=== PATIENT | female | born 1955 | race Caucasian/White ===

== ENCOUNTER 2019-11-17 07:00 | Emergency (ER) | payer BC, SELFPAY ==
[2019-11-17 07:30] VITALS: BP 148/79; PULSE 66; RESP 16; TEMP 36.7; BMI 61.9
--- NOTE | 2019-11-17 07:34 | ED_ITS ---
HPI - Headache General Chief Complaint: Headache Stated Complaint: palpations in head Time Seen by Provider: 11/17/19 07:34 Source: patient Mode of arrival: ambulatory Limitations: no limitations History of Present Illness MD elicited complaint: headache and other (feels off balance ) Pertinent past history: other (MS) Onset (ago): day(s) (3) Onset description: gradually Location: temporal Severity: moderate Quality & Timing: throbbing and pulsatile Exacerbating factors: none Relieving factors: nothing Context: occurred at rest Associated symptoms: other (feels off balance) Treatments prior to arrival: none Related Data Allergies Allergy/AdvReac Type Severity Reaction Status Date / Time No Known Allergies Allergy Verified 11/17/19 07:34 Review of Systems 2 Review of Systems: Constitutional : No Fever, No Chills, No Fatigue ENT/Mouth : No sore throat, No Rhinorrhea Eyes: No Eye Pain, No Swelling, No Redness Cardiovascular : No Chest Pain, No SOB Gastrointestinal : No Nausea, No Vomiting No abdominal Pain Genitourinary : No Dysuria, No Urinary Frequency, No Hematuria, Musculoskeletal : No joint pain, No Myalgias, No Joint Swelling Skin : No Skin Lesions, No rash Neuro : No new Weakness, No Numbness, No Dizziness, positive Headache Psych : No Anxiety/Panic, No Depression Heme/Lymph: No Bruising, No Bleeding,No Lymphadenopathy Endocrine : No Polyuria, No Polydipsia All other systems reviewed and are negative [facility] Past Medical History Medical History (Updated 11/17/19 @ 11:05 by Diane Alvarado DO) Multiple sclerosis Social History Social History (Updated 11/17/19 @ 07:49 by Diane Alvarado DO) Smoking Status: Never smoker Use of substances other than those prescribed or required for medical reasons: No Advance Directives: No Advance Directives Information Provided: Yes Physical Exam Vital Signs and I&O and Narrative: Vital Signs and I&O: Vital Signs Temp 97.6 F 11/17/19 10:19 Pulse 78 11/17/19 10:19 Resp 18 11/17/19 10:19 BP 139/76 11/17/19 10:19 Pulse Ox 95 11/17/19 10:19 Intake & Output 11/16/19 11/17/19 11/17/19 18:59 06:59 18:59 Weight 169 kg Body Mass Index 61.9 Appearance: Alert. Oriented X3. No acute distress. Eyes: Pupils equal, round and reactive to light. ENT: Pharynx normal. Neck: Normal inspection. Neck supple. no meningeal signs CVS: Normal heart rate and rhythm. Pulses normal. Respiratory: No respiratory distress. Breath sounds normal. Abdomen: Soft and nontender. Skin: Skin warm and dry. Normal skin color. Normal skin turgor. Extremities: No lower extremity edema. No lower extremity edema. Neuro: Oriented X 3. + LLE weakness chronic x 2 years. No sensory deficit. Course Course Course Narrative: no acute findings on labs or MRI to suggest active MS, stable for DC MDM - Headache MDM Narrative Medical decision making narrative: patient with hx of MS here with throbbing pain in head as well as feeling off balance for 3 days, happened one other time in june with negative MRI, just saw ENT and was cleared per her, will need labs, IV reglan for her discomfort, no fevers, no abrupt onset no meningeal symptoms doubt SECTION CHIEF infection/SAH - MRI ordered for acute MS flare Lab Data Result diagrams: 11/17/19 08:07 11/17/19 08:07 Labs: Lab Results 11/17/19 11/17/19 11/17/19 Range/Units 08:07 08:07 08:07 WBC 4.9 (4.8-10.8) X10*3/uL RBC 4.27 (4.20-5.50) X10*6/uL Hgb 11.4 L (12.0-16.0) g/dl Hct 34.8 L (37-47) % MCV 81.5 (80-98) fL MCH 26.7 L (27.0-33.0) pg MCHC 32.8 (31.0-35.0) g/dl RDW 13.8 (11.0-16.0) % Plt Count 239 (160-400) X10*3/uL MPV 9.7 (9.4-12.3) fL Immature Gran % (Auto) 1.2 H (0.0-0.4) % Neut % (Auto) 65.9 (45-73) % Lymph % (Auto) 19.5 L (20-40) % [place] % (Auto) 8.3 (2-11) % Eos % (Auto) 4.3 H (0-4) % Baso % (Auto) 0.8 (0-2) % Neut # (Auto) 3.2 (2.0-8.3) X10*3/uL Lymph # (Auto) 1.0 L (1.2-4.9) X10*3/uL [place] # (Auto) 0.4 (0.1-1.2) X10*3/uL Eos # (Auto) 0.2 (0.0-0.4) X10*3/uL Baso # (Auto) 0.0 (0.0-0.2) X10*3/uL Abs Immat Gran (auto) 0.06 H (0.00-0.03) X10*3/uL Absolute Nucleated RBC 0.000 (0.0-0.012) X10*3/uL Nucleated RBC % (auto) 0.0 (0.0-0.2) /100WBC Hold Blue Top SEE NOTE Sodium 140 (135-145) mmol/L Potassium 4.4 (3.3-5.1) mmol/l Chloride 104 (96-108) mmol/L Carbon Dioxide 25 (22-29) mmol/L Anion Gap 15 (12-20) BUN 31 H (9-16) mg/dL Creatinine 1.37 (0.5-1.4) mg/dL Estim Creat Clear Calc 66.6 Estimated GFR 39 Random Glucose 94 (60-115) mg/dL Calcium 9.7 (8.4-10.2) mg/dL Magnesium 1.8 (1.6-2.6) mg/dL Total Bilirubin 0.3 (0.0-1.0) mg/dL Direct Bilirubin 0.2 (0.0-0.5) mg/dL AST 20 (5-31) U/L ALT 16 (0-31) U/L Alkaline Phosphatase 62 (39-117) U/L Total Protein 7.1 (6.5-8.0) g/dL Albumin 4.6 (3.5-5.0) g/dL Discharge Plan Discharge Clinical Impression: Weakness Patient Disposition: Home, Self-Care Instructions: Weakness (ED) Additional Instructions: please follow up with your Neurologist today's MRI showed no active disease or active demyelinating disease Referrals: Indigo Carroll MD [Primary Care Provider] - 2 days Stand Alone Forms: Work/School Release
--- NOTE | 2019-11-17 07:37 | PC.NURSE ---
SEEN BY DR YODER AT THIS TIME
[2019-11-17] MEDS: Metoclopramide HCl 10 MG/2 ML VIAL 5 MG IVPUSH (08:11)
[2019-11-17 08:12] LABS: MANUAL DIFF FLAG NO
[2019-11-17] MEDS: diphenhydrAMINE HCL 50 MG/ML VIAL 25 MG IVPUSH (08:12)
--- NOTE | 2019-11-17 08:15 | PC.NURSE ---
IVEST 20 G L AC. MEDICATED PER ORDERS. BLOOD TO LAB
[2019-11-17 08:27] LABS: Basophils Percent Auto 0.8 % (0-2); Eosinophils Absolute Auto 0.2 X10*3/uL (0.0-0.4); Eosinophils Percent Auto 4.3 % (0-4); Hematocrit 34.8 % (37-47); Hemoglobin 11.4 g/dl (12.0-16.0); Imm Gran Abs Auto 0.06 X10*3/uL (0.00-0.03); Imm Gran Pct Auto 1.2 % (0.0-0.4); Lymphocytes Percent Auto 19.5 % (20-40); Mean Corpuscular HGB Conc 32.8 g/dl (31.0-35.0); Mean Corpuscular Hemoglobin 26.7 pg (27.0-33.0); Mean Corpuscular Volume 81.5 fL (80-98); Mean Platelet Volume 9.7 fL (9.4-12.3); Monocytes Absolute Auto 0.4 X10*3/uL (0.1-1.2); Monocytes Percent Auto 8.3 % (2-11); Neutrophils Absolute Auto 3.2 X10*3/uL (2.0-8.3); Neutrophils Percent Auto 65.9 % (45-73); Platelet Count 239 X10*3/uL (160-400); Red Blood Count 4.27 X10*6/uL (4.20-5.50); Red Cell Distribution Width 13.8 % (11.0-16.0); White Blood Count 4.9 X10*3/uL (4.8-10.8)
[2019-11-17 08:39] VITALS: BP 131/73; PULSE 71; O2SAT 98
--- NOTE | 2019-11-17 08:40 | PC.NURSE ---
OFF UNIT TO,MRI
--- NOTE | 2019-11-17 08:50 | MR_ITS ---
EXAMINATION: MR BRAIN WITHOUT AND WITH CONTRAST CLINICAL INFORMATION: History of multiple sclerosis. Off balance. Memory issues. COMPARISON: CT scan of the head 08/20/2012. TECHNIQUE: Multiplanar MR imaging of the brain was performed without and with contrast. A total of 8 mL Gadavist was utilized for this examination. FINDINGS: There are numerous foci of T2 FLAIR signal hyperintensity primarily involving the supratentorial white matter with a predilection for the callososeptal interface and juxtacortical white matter consistent with the patient's clinical history of multiple sclerosis. There is no abnormal intraparenchymal enhancement demonstrated on postcontrast images to suggest active demyelination. There is no intracranial mass effect or midline shift. Lateral and third ventricles are normal. No hydrocephalus. Midline structures including the cervicomedullary junction are normal. No acute bone marrow signal changes. There is no acute territorial infarct. Intracranial vascular flow voids are grossly maintained. There is no mastoid or middle ear effusion. Mild paranasal sinus disease primarily affecting the ethmoid air cells. IMPRESSION: There are numerous chronic lesions primarily involving the supratentorial white matter consistent with the patient's clinical history of multiple sclerosis. No abnormal intraparenchymal enhancement to suggest active demyelination. There is no acute intracranial finding. Specifically no evidence of acute territorial infarct.
[2019-11-17 09:02] LABS: Alanine Aminotransferase 16 U/L (0-31); Albumin Level 4.6 g/dL (3.5-5.0); Alkaline Phosphatase 62 U/L (39-117); Anion Gap 15 (12-20); Aspartate Amino Transferase 20 U/L (5-31); Bilirubin Direct 0.2 mg/dL (0.0-0.5); Bilirubin Total 0.3 mg/dL (0.0-1.0); Blood Urea Nitrogen 31 mg/dL (9-16); Calcium 9.7 mg/dL (8.4-10.2); Carbon Dioxide 25 mmol/L (22-29); Chloride 104 mmol/L (96-108); Creatinine Clr Calc Pharmacy 66.6; Estimated Glomerular Filt Rate 39; Glucose Random 94 mg/dL (60-115); Magnesium 1.8 mg/dL (1.6-2.6); Potassium 4.4 mmol/l (3.3-5.1); Sodium 140 mmol/L (135-145); Total Protein 7.1 g/dL (6.5-8.0)
--- NOTE | 2019-11-17 09:46 | PC.NURSE ---
RETURNS FROM MRI. NAD.
[2019-11-17 09:47] VITALS: BP 146/57; PULSE 77
[2019-11-17 10:19] VITALS: BP 139/76; PULSE 78; RESP 18; TEMP 36.4; O2SAT 95
[2019-11-17 11:10] VITALS: BP 153/81; PULSE 77; RESP 16; O2SAT 100
--- NOTE | 2019-11-17 11:11 | PC.NURSE ---
AWAITING MRI READING AND REEVAL.
== END 2019-11-17 11:39 | disposition home or self-care (01) ==
PROVIDERS: Emergency Provider Emergency Medicine; PCP Internal Medicine
DX: R53.1 Weakness (principal); R51.9 Headache, unspecified; Z79.899 Other long term (current) drug therapy
CPT/HCPCS: 36415; 70553; 80048; 80076; 83735; 85025; 96374; 96375; 99284; 99285; J1200; J2765

== ENCOUNTER 2019-12-02 09:20 | Outpatient (REF) | payer BC, SELFPAY ==
--- NOTE | 2019-12-02 09:30 | MR_ITS ---
EXAMINATION: MR ANGIOGRAPHY BRAIN WITHOUT AND WITH CONTRAST CLINICAL INFORMATION: Pulsatile tinnitus. History of MS. COMPARISON: MRI brain 11/17/2019. TECHNIQUE: Noncontrast and gadolinium infusion MRA of the head acquired, the latter following the administration of 10 mL of Gadavist intravenous contrast without complication. Vascular post-processing, including 2-dimensional and 3-dimensional reformatted images were created and reviewed on an independent workstation under concurrent physician supervision. Stenoses are graded per criteria similar to NASCET. FINDINGS: The anterior and posterior intracranial tissue circulations are normal in caliber without significant arterial stenosis and without acute arterial occlusion. No aneurysms and no high flow vascular malformations identified. IMPRESSION: Unremarkable MRA of the head.
== END 2019-12-02 09:21 | disposition home or self-care (01) ==
LOC: HO.MRI 09:20
PROVIDERS: Absent Provider Psychiatry & Neurology Neurology; Visit Provider Otolaryngology
DX: H93.A9 Pulsatile tinnitus, unspecified ear (principal); G35 Multiple sclerosis
CPT/HCPCS: 70546

== ENCOUNTER 2021-12-27 14:00 | Outpatient (RCR) | payer MEDICARE, SELFPAY | END 2021-12-27 14:42 | disposition home or self-care (01) | LOC: HO.PTCHIC 14:00 | PROVIDERS: Visit Provider Nurse Practitioner Family | DX: S16.1XXD Strain of muscle, fascia and tendon at neck level, subsequent encounter (principal) | CPT/HCPCS: 97110; 97140; 97162 ==

== ENCOUNTER 2022-02-19 13:00 | Outpatient (RCR) | payer MEDICARE, SELFPAY | END 2022-02-19 13:52 | disposition home or self-care (01) | LOC: HO.PTCHIC 13:00 | PROVIDERS: PCP Internal Medicine; Visit Provider Orthopaedic Surgery | DX: M94.261 Chondromalacia, right knee (principal) | CPT/HCPCS: 97110; 97161 ==

== ENCOUNTER 2023-07-30 15:18 | Outpatient (REF) | payer MEDICARE, SELFPAY ==
--- NOTE | ~2023-07-30 | US_ITS ---
EXAMINATION: US VENOUS ULTRASOUND WITH DOPPLER LOWER EXTREMITY, LEFT CLINICAL INFORMATION: Left leg swelling COMPARISON: None available. TECHNIQUE: Ultrasound of the deep veins is performed from the hip to the calf with compression sonography and color and pulse Doppler assessment. Spectral analysis with color-flow imaging is performed. FINDINGS: There is normal venous compression and respiratory variation and augmented flow. The visualized common femoral vein, superficial femoral vein, profunda femoral vein, popliteal vein, and the trifurcation region shows no evidence of deep venous thrombosis. Popliteal fossa cyst measuring 5.0 x 1.4 x 2.3 cm. Contralateral common femoral vein is patent. If the patient's symptoms persist, followup ultrasound in 5 days 7 days might be of value to exclude proximal propagation from a non-visualized calf vein. US/US venous duplex LE IMPRESSION: No DVT demonstrated in the left lower extremity.
== END 2023-07-30 15:19 | disposition home or self-care (01) ==
LOC: HO.US 15:18
PROVIDERS: Visit Provider Nurse Practitioner Family
DX: M79.89 Other specified soft tissue disorders (principal); M71.22 Synovial cyst of popliteal space [Baker], left knee
CPT/HCPCS: 93971

== ENCOUNTER 2024-09-23 18:17 | Inpatient (IN) | payer MEDICARE, SELFPAY ==
--- NOTE | ~2024-09-23 | MR_ITS ---
CLINICAL HISTORY: aphasia, LLE weakness, r o CVA MR BRAIN WITHOUT GADOLINIUM Comparison: CT/SR - CT ANGIO HEAD NECK STROKE - 09/23/24 18:[address]/SR - CT HEAD FOR STROKE - 09/23/24 18:24 EDT Findings: No restricted diffusion. No intra-axial mass or hemorrhage. There are multiple confluent and discrete foci of T2 FLAIR signal alteration in the periventricular and subcortical white matter. There are similar findings in the jemma. No midline shift. No hydrocephalus. Vascular flow voids are intact. Visualized orbits: No acute abnormalities. No sinus or mastoid fluid. No focal bone lesion. IMPRESSION: 1. No acute infarct. 2. [id number]-xc-rilfi burden of periventricular and subcortical white matter signal alteration. This is a nonspecific finding that can be seen in the setting of age advanced microangiopathy, remote trauma, prior infectious/inflammatory process (such as demyelination) or can be seen with increased frequency in patients with a history of migraine headaches. 3. Possible wallerian degeneration in the brainstem. This document has been electronically signed by: Maureen Chiu DO on 09/24/2024 20:04:24
--- NOTE | ~2024-09-23 | US_ITS ---
CLINICAL HISTORY: Total knee replacement R O DVT VENOUS DUPLEX ULTRASOUND LEFT LOWER EXTREMITY Comparison: US/SR - US LOWER EXTREMITY VEINS LIMITED FOLLOW UP LEFT - 07/30/23 15:37 EDT Findings: The visualized deep veins are fully compressible with normal Doppler color flow and spectral tracings. No popliteal cyst. Nonenlarged left groin lymph node with benign morphology. IMPRESSION: 1. Negative for left lower extremity deep vein thrombosis. This document has been electronically signed by: Maureen Chiu DO on 09/23/2024 20:31:16
--- NOTE | ~2024-09-23 | CT_ITS ---
CLINICAL HISTORY: Difficulty with word finding, R O stroke, bleed CT HEAD WITHOUT CONTRAST Comparison: None provided Findings: No acute intracranial hemorrhage, extra-axial fluid collection, hydrocephalus or midline shift. Age appropriate generalized parenchymal atrophy. There are periventricular and subcortical white matter hypodensities which are nonspecific but most likely related to microangiopathic gliosis. Intracranial arteriosclerosis. No evidence for acute large territorial infarct. There is no sinus or mastoid fluid. Visualized orbits: No acute abnormalities. There is no acute fracture. IMPRESSION: 1. Motion affected study. No acute intracranial process. This document has been electronically signed by: Maureen Chiu DO on 09/23/2024 18:40:43
--- NOTE | ~2024-09-23 | CT_ITS ---
CLINICAL HISTORY: Difficulty with word finding R O clot CTA HEAD WITH CONTRAST, 3D POSTPROCESSING CTA NECK WITH CONTRAST, WITH 3D POSTPROCESSING Comparison: CT/SR - CT HEAD FOR STROKE - 09/23/24 18:24 EDT Findings: Aortic arch: Three-vessel arch with patent branch origins. Vertebral arteries: No occlusion or dissection. Extracranial carotid arteries: No occlusion, flow limiting stenosis, aneurysm or dissection. Focal calcific plaque in the proximal right ICA. Mild calcific plaque in the left carotid bifurcation and proximal ICA. Intracranial carotid arteries: No occlusion or flow limiting stenosis. Vertebrobasilar system: Patent. Cerebellar arteries: Patent. Posterior cerebral arteries: Patent. No occlusion or aneurysm. Anterior cerebral arteries: Patent. No occlusion or aneurysm. Middle cerebral arteries: Patent. No occlusion or aneurysm. No enhancing intracranial mass lesion. Dural venous sinuses are patent. No enhancing cervical mass or fluid collection. Probable multinodular thyroid gland. No acute abnormalities in the included lungs. No acute osseous abnormalities. Impression: 1. Patent head and neck CTA. This document has been electronically signed by: Maureen Chiu DO on 09/23/2024 19:40:21
--- NOTE | 2024-09-23 18:22 | ED_ITS ---
HPI - Neuro Symptoms/Deficit General Chief Complaint: Stroke Stated Complaint: Stroke Alert/Trouble speaking ,weakness,LKW 8am Time Seen by Provider: 09/23/24 18:22 Source: patient and family ( and son) Mode of arrival: EMS Limitations: no limitations History of Present Illness ED Provider: Dr. Kayden Domínguez HPI Narrative: 69-year-old female with a history of hypertension, hyperlipidemia, MS with left lower extremity weakness, left total knee replacement 1 week prior at [facility] who presents emergency department for evaluation of confusion, difficulty word word-finding and difficulty speaking. According to the patient and her , when the patient woke up this morning at 08:00 hours she appeared to be confused and was having difficulty talking. The patient thought that maybe she had taken an extra oxycodone or tramadol overnight. The patient has been getting home physical therapy and the physical therapist noted that the patient was not able to move her left leg which was new this morning. The patient's was at work and when he got home he noted that the patient was more confused, she was having difficulty finding words and was stumbling over her words. He also states that he was having difficulty understanding her explanations. 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 Patient went to bed last night at 21:00 hours and that was here last well-known time. The patient woke up this morning at 08:00 hours with confusion. The patient was transported to the emergency department by ambulance as a stroke alert. I evaluated the patient on the EMS stretcher. The patient had difficulty with word finding, she also had some dysarthric speech. She was not able to lift her left leg therefore she was sent directly to CT scan for CT scan of the brain and CT angiogram head and neck. 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 She is in her and son are here in the emergency department with her. Medical History (Updated 09/23/24 @ 20:16 by Kayden Domínguez MD) Multiple sclerosis Social History Social History (Updated 11/17/19 @ 07:49 by Stefani Alvarado DO) Smoked in Last 30 Days: No Use of substances other than those prescribed or required for medical reasons: No Advance Directives: No Advance Directives Information Provided: No Physical Exam 2 Vital Signs: Vital Signs: Last Vital Signs Temp 99.2 F 09/23/24 20:12 Pulse 95 09/23/24 20:12 Resp 12 09/23/24 20:12 BP 146/69 H 09/23/24 20:12 Pulse Ox 100 09/23/24 20:12 O2 Del Method Room Air 09/23/24 20:12 BMI result Body Mass Index 27.9 Vital signs revealed an elevated heart rate of 115 and elevated blood pressure of 141/65 otherwise unremarkable. Exam: General: Awake, alert in no distress Head: Normocephalic, atraumatic EENT: PERRL, Lids normal, sclera normal, conjunctiva normal, nose normal , ears normal, throat without erythema or exudates Neck: Supple, no adenopathy Lung: breath sounds symmetric, no wheezing, rales or rhonchi Chest: symmetric movement, nontender Heart: regular rate and rhythm, normal S1, S2 no murmurs or rubs Abdomen: soft, non-tender, nondistended, normal bowel sounds Back: no vertebral tenderness, no CVAT Extremities: Patient has left lower extremity is ecchymotic and swollen with a dressing over her knee consistent with total knee replacement, right lower extremities normal Neuro: General: ?Awake, alert, oriented to person, month and age. Patient has difficulty with word finding and dysarthric speech Cranial nerves: ?Cranial nerves ?intact Strength: Patient has normal strength in her upper extremities and are symmetric, she was able to hold her right lower extremity up against gravity, she is not able to lift her left lower extremity Cerebellar: ?Good ipuyan-jh-elgs-to-finger, good rapid finger movement, normal heel to espinosa Sensory: Diminished light touch on her left face, arm and leg compared to the right Psych: Pleasant, cooperative Medications Administered Discontinued Medications Generic Name Dose Route Start Last Admin Trade Name Freq PRN Reason Stop Dose Admin Aspirin 300 mg 09/23/24 20:04 09/23/24 20:21 Aspirin 300 Mg Supp.Rect ND 09/23/24 20:05 300 mg ONCE ONE Administration Iohexol 100 ml 09/23/24 18:45 09/23/24 18:45 Iohexol 350 Mg/Ml 100 Ml Infus..Btl IV 09/23/24 18:46 70 ml ONCE ONE Administration Medical Decision Making Medical Decision Making [facility] Narrative: 69-year-old female with a history of hypertension, hyperlipidemia, MS with left lower extremity weakness, left total knee replacement 1 week prior at [facility] who presents emergency department for evaluation of confusion, difficulty word word-finding and difficulty speaking when she woke up this morning at 08:00 hours with the last well-known time last night at 21:00 hours last night. Vital signs revealed an elevated heart rate and elevated blood pressure otherwise unremarkable. Patient had difficulty with word finding (expressive aphasia) and dysarthric speech. She was unable to lift her left leg up against gravity however the left leg is quite swollen secondary to her total knee replacement. She did have diminished noxious stimuli to the left side of her body compared to the right. NIH stroke scale was 7 . Differential diagnosis: ?Includes but is not limited to stroke, intracranial bleed, myocardial infarction, myocardial ischemia, atrial fibrillation, left lower extremity DVT, anemia, electrolyte abnormalities Course: 19:48 My independent interpretation patient's laboratory evaluation is as follows: Normocytic anemia with an H&H of 7.3 and 22.4-concerning for postoperative bleed into her left lower extremity. Type and screen was ordered. CMP was normal. High sensitive troponin I was elevated at 40.6. Coags were normal. Point of care glucose 97, serum glucose 106. Lipid profile normal. Alcohol was below detectable limits. Urine tox screen pending urine collection. I did review the patient's labs from [facility]. On 09/17/2024 her H&H was 8.5 and 25.9, supports that today's anemia is most likely postoperative bleed. I do not think that the patient needs a transfusion at this time however her H&H will need to be trended. Twelve EKG revealed inverted T-waves V1 through V6, no old EKG for comparison.EKG report from [facility] on 09/02/2024 was as follows: Normal sinus rhythm, T-wave abnormalities consider anterior ischemia. When compared to an EKG dated 01/17/2022 at 15:00 hours, nonspecific T-wave abnormalities now evident in the lateral leads. This suggests that her T-wave abnormalities are not new. CT head revealed no acute bleed and CT angiogram revealed no retrievable arterial clot to explain her symptoms. The patient is not a TNK candidate since her last well-known time was 21:00 hours last night and she is outside of the therapeutic window. Patient did not pass the swallow test therefore she was given aspirin 300 mg rectally. I did order a repeat troponin for 18:50 hours, duplex ultrasound of the left lower extremity rule out DVT and a type and screen. 21:25 Duplex ultrasound of the left lower extremity revealed no DVT. Patient's repeat troponin did increased from 40.6 to 62 which is 50%. This most likely represents type 2 injury and not myocardial infarction. 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 The patient is requesting a Billingsley catheter and I did order this to prevent her from having urinary retention. I did discuss the patient's presentation over tiger text with the covering hospitalist, Dr. Chencho [place] and the patient will be admitted to hospitalist service for further treatment and workup for possible stroke versus MS exacerbation. Admission/Observation Consideration of admission/observation: Escalation of care including admission/observation considered (Yes) Lab Data MDM Lab Attestation statement: I reviewed the patient's lab results. 09/23/24 18:51 09/23/24 18:51 Labs: Lab Results 09/23/24 09/23/24 09/23/24 Range/Units 18:23 18:38 18:51 WBC 8.1 (4.8-10.8) X10*3/uL RBC 2.36 L (4.20-5.50) X10*6/uL Hgb 7.3 L (12.0-16.0) g/dl Hct 22.4 L (37.0-47.0) % MCV 94.9 (80.0-98.0) fL MCH 30.9 (27.0-33.0) pg MCHC 32.6 (31.0-35.0) g/dl RDW 13.1 (11.0-16.0) % Plt Count 378 (160-400) X10*3/uL MPV 8.5 L (9.4-12.3) fL Immature Gran % (Auto) 0.7 H (0.0-0.4) % Neut % (Auto) 77.9 H (45-73) % Lymph % (Auto) 9.5 L (20-40) % Jasper % (Auto) 9.1 (2-11) % Eos % (Auto) 2.2 (0-4) % Baso % (Auto) 0.6 (0-2) % Lymph # (Auto) 0.8 L (1.2-4.9) X10*3/uL Jasper # (Auto) 0.7 (0.1-1.2) X10*3/uL Eos # (Auto) 0.2 (0.0-0.4) X10*3/uL Baso # (Auto) 0.1 (0.0-0.2) X10*3/uL Abs Immat Gran (auto) 0.06 H (0.00-0.03) X10*3/uL Absolute Neuts (auto) 6.3 (2.0-8.3) x10*3/uL Absolute Nucleated RBC 0.000 (0.0-0.012) X10*3/uL Nucleated RBC % (auto) 0.0 (0.0-0.2) /100WBC PT 10.3 L (10.9-12.4) SEC Whole Blood PT 11.7 (11.1-13.5) sec INR 0.9 (0.9-1.1) Whole Blood INR 1.0 (0.9-1.1) APTT 29.1 (26.7-34.1) SEC Sodium 138 (135-145) mmol/L Potassium 3.7 (3.3-5.1) mmol/L Chloride 103 (96-108) mmol/L Carbon Dioxide 25 (22-29) mmol/L Anion Gap 14 (12-20) BUN 12 (9-16) mg/dL Creatinine 0.65 (0.5-1.4) mg/dL Estim Creat Clear Calc 80.3 Estimated GFR > 60 POC Glucose 97 (60-115) mg/dL Random Glucose 106 (60-115) mg/dL Calcium 9.1 D (8.4-10.2) mg/dL Total Bilirubin 1.0 (0.0-1.0) mg/dL Direct Bilirubin 0.4 (0.0-0.5) mg/dL AST 31 (5-31) U/L ALT 13 (0-31) U/L Alkaline Phosphatase 83 (39-117) U/L Troponin I High Sens 40.6 H (<3.5-17.0) ng/L Total Protein 6.3 L (6.5-8.0) g/dL Albumin 4.0 (3.5-5.0) g/dL Triglycerides 78 (<150) mg/dL Cholesterol 137 (<200) mg/dL LDL Cholesterol, Calc 70 (<100) mg/dL HDL Cholesterol 52 (>40) mg/dL Urine Opiates Screen (Not Detect) Ur Buprenorphine Scrn (Not Detect) ng/mL Ur Oxycodone Screen (Not Detect) ng/mL Urine Methadone Screen (Not Detect) ng/mL Urine Fentanyl Screen (Not Detect) Ur Barbiturates Screen (Not Detect) Ur Phencyclidine Scrn (Not Detect) Ur Amphetamines Screen (Not Detect) U Benzodiazepines Scrn (Not Detect) Urine Cocaine Screen (Not Detect) U Marijuana (THC) Screen (Not Detect) Ethyl Alcohol < 10 mg/dL 09/23/24 09/23/24 Range/Units 19:36 20:53 WBC (4.8-10.8) X10*3/uL RBC (4.20-5.50) X10*6/uL Hgb (12.0-16.0) g/dl Hct (37.0-47.0) % MCV (80.0-98.0) fL MCH (27.0-33.0) pg MCHC (31.0-35.0) g/dl RDW (11.0-16.0) % Plt Count (160-400) X10*3/uL MPV (9.4-12.3) fL Immature Gran % (Auto) (0.0-0.4) % Neut % (Auto) (45-73) % Lymph % (Auto) (20-40) % Jasper % (Auto) (2-11) % Eos % (Auto) (0-4) % Baso % (Auto) (0-2) % Lymph # (Auto) (1.2-4.9) X10*3/uL Jasper # (Auto) (0.1-1.2) X10*3/uL Eos # (Auto) (0.0-0.4) X10*3/uL Baso # (Auto) (0.0-0.2) X10*3/uL Abs Immat Gran (auto) (0.00-0.03) X10*3/uL Absolute Neuts (auto) (2.0-8.3) x10*3/uL Absolute Nucleated RBC (0.0-0.012) X10*3/uL Nucleated RBC % (auto) (0.0-0.2) /100WBC PT (10.9-12.4) SEC Whole Blood PT (11.1-13.5) sec INR (0.9-1.1) Whole Blood INR (0.9-1.1) APTT (26.7-34.1) SEC Sodium (135-145) mmol/L Potassium (3.3-5.1) mmol/L Chloride (96-108) mmol/L Carbon Dioxide (22-29) mmol/L Anion Gap (12-20) BUN (9-16) mg/dL Creatinine (0.5-1.4) mg/dL Estim Creat Clear Calc Estimated GFR POC Glucose (60-115) mg/dL Random Glucose (60-115) mg/dL Calcium (8.4-10.2) mg/dL Total Bilirubin (0.0-1.0) mg/dL Direct Bilirubin (0.0-0.5) mg/dL AST (5-31) U/L ALT (0-31) U/L Alkaline Phosphatase (39-117) U/L Troponin I High Sens 62.0 H* D (<3.5-17.0) ng/L Total Protein (6.5-8.0) g/dL Albumin (3.5-5.0) g/dL Triglycerides (<150) mg/dL Cholesterol (<200) mg/dL LDL Cholesterol, Calc (<100) mg/dL HDL Cholesterol (>40) mg/dL Urine Opiates Screen Not Detected (Not Detect) Ur Buprenorphine Scrn Not Detected (Not Detect) ng/mL Ur Oxycodone Screen Positive H (Not Detect) ng/mL Urine Methadone Screen Not Detected (Not Detect) ng/mL Urine Fentanyl Screen Not Detected (Not Detect) Ur Barbiturates Screen Not Detected (Not Detect) Ur Phencyclidine Scrn Not Detected (Not Detect) Ur Amphetamines Screen Not Detected (Not Detect) U Benzodiazepines Scrn Not Detected (Not Detect) Urine Cocaine Screen Not Detected (Not Detect) U Marijuana (THC) Screen Not Detected (Not Detect) Ethyl Alcohol mg/dL Independent Interpretation I performed an independent interpretation of an: EKG Interpretation: My independent interpretation patient's 12 EKG done on 09/23/2024 at 18:58 hours is as follows: Normal sinus rhythm rate of 97, normal ND interval and QRS duration, prolonged QTC interval of 485 milliseconds, inverted T-waves V1 through V4, no old EKG for comparison.EKG report from [facility] on 09/02/2024 was as follows: Normal sinus rhythm, T-wave abnormalities consider anterior ischemia. When compared to an EKG dated 01/17/2022 at 15:00 hours, nonspecific T-wave abnormalities now evident in the lateral leads. Radiology Impression Discussion of test interpretation with radiology: I have reviewed the radiologist's reading. Radiologist Impression: CT HEAD WITHOUT CONTRAST Comparison: None provided Findings: No acute intracranial hemorrhage, extra-axial fluid collection, hydrocephalus or midline shift. Age appropriate generalized parenchymal atrophy. There are periventricular and subcortical white matter hypodensities which are nonspecific but most likely related to microangiopathic gliosis. Intracranial arteriosclerosis. No evidence for acute large territorial infarct. There is no sinus or mastoid fluid. Visualized orbits: No acute abnormalities. There is no acute fracture. IMPRESSION: 1. Motion affected study. No acute intracranial process. This document has been electronically signed by: Maureen Chiu DO on 09/23/2024 18:40:43 ADDENDUM: This report was discussed with Kayden Domínguez on Sep 23, 2024 18:44:00 EDT. This document has been electronically signed by: Marge Noriega on 09/23/2024 18:44:19 Comparison: CT/SR - CT HEAD FOR STROKE - 09/23/24 18:24 EDT Findings: Aortic arch: Three-vessel arch with patent branch origins. Vertebral arteries: No occlusion or dissection. Extracranial carotid arteries: No occlusion, flow limiting stenosis, aneurysm or dissection. Focal calcific plaque in the proximal right ICA. Mild calcific plaque in the left carotid bifurcation and proximal ICA. Intracranial carotid arteries: No occlusion or flow limiting stenosis. Vertebrobasilar system: Patent. Cerebellar arteries: Patent. Posterior cerebral arteries: Patent. No occlusion or aneurysm. Anterior cerebral arteries: Patent. No occlusion or aneurysm. Middle cerebral arteries: Patent. No occlusion or aneurysm. No enhancing intracranial mass lesion. Dural venous sinuses are patent. No enhancing cervical mass or fluid collection. Probable multinodular thyroid gland. No acute abnormalities in the included lungs. No acute osseous abnormalities. Impression: 1. Patent head and neck CTA. This document has been electronically signed by: Maureen Chiu DO on 09/23/2024 19:40:21 VENOUS DUPLEX ULTRASOUND LEFT LOWER EXTREMITY Comparison: US/SR - US LOWER EXTREMITY VEINS LIMITED FOLLOW UP LEFT - 07/30/23 15:37 EDT Findings: The visualized deep veins are fully compressible with normal Doppler color flow and spectral tracings. No popliteal cyst. Nonenlarged left groin lymph node with benign morphology. IMPRESSION: 1. Negative for left lower extremity deep vein thrombosis. This document has been electronically signed by: Maureen Chiu DO on 09/23/2024 20:31:16 Independent Historian Clinical information obtained from an independent historian. History obtained from or confirmed by: Spouse External Record Review External record reviewed: Inpatient record ([facility]) Chronic Conditions Patient?s care impacted by: Hypertension and Other (Hypercholesterolemia, MS) NIH Stroke Scale Internal: Initial- Upon Arrival Level of Consciousness: Alert Level of Consciousness Questions: Answers both questions correctly Level of Consciousness Commands: Performs both tasks correctly Best Gaze: Normal Visual: No visual loss Facial Palsy: Normal Motor Arm (Right): No drift Motor Arm (Left): No drift Motor Leg (Right): No drift Motor Leg (Left): No movement Limb Ataxia: Absent Sensory: Mild to moderate sensory loss Best Language: Mild to moderate aphasia Dysarthia: Mild to moderate dysarthria Extinction and Inattention: No abnormality Score: 7 Critical Care Time Critical Care Time Critical Care Time: Yes Total Critical Care Time: 45 Attestation: Critical Care: The patient was critically ill with a high probability of imminent or life threatening deterioration. I spent greater than 30 minutes of discontinuous time evaluating the patient,delivering critical care at the bedside, discussing and evaluating pertinent data with consultants. Critical care time does not include time spent performing separately billable procedures or teaching. Total time spent performing critical care was 45 minutes. Discharge Plan Discharge Clinical Impression: Stroke, Anemia, Elevated troponin I level Print Language: Cambodian
--- NOTE | 2024-09-23 18:22 | ECG_ITS ---
Test Reason : STROKE ALERT Blood Pressure : */* mmHG Vent. Rate : 97 BPM Atrial Rate : 97 BPM P-R Int : 160 ms QRS Dur : 86 ms QT Int : 382 ms P-R-T Axes : 80 51 3 degrees QTcB Int : 485 ms Normal sinus rhythm Possible Left atrial enlargement ST & T wave abnormality, consider anterolateral ischemia Prolonged QT Abnormal ECG No previous ECGs available Referred By: Kayden Domínguez Electronically Signed By: Pravin Ball
[2024-09-23 18:29] LABS: Glucose, Whole Blood 97 mg/dL (60-115)
[2024-09-23 18:37] VITALS: BP 141/65; BP 195/95; PULSE 100; PULSE 115; RESP 16; TEMP 36.8; O2SAT 100; BMI 27.9
--- NOTE | 2024-09-23 18:44 | PC.NURSE ---
Pt BIBA and stroke alert called, per EMS pt last known well was approx 0800. History of MS and left TKR done last week. Today pt noted increased weakness and slurred speech, EMS was called. #[address] to left FA, POC 97, pt taken to CT.
[2024-09-23] MEDS: iohexoL 350 MG/ML 100 ML INFUS..BTL IV (18:45)
[2024-09-23 18:46] LABS: Prothrombin Time Whole Bld POC 11.7 sec (11.1-13.5); ~PT, ~INR - Anti Coag Clinic 1.0 (0.9-1.1)
--- OUTSIDE RECORDS SUMMARY | 2024-09-23 18:53 | XMS_ITS | Clinical Summary ---
Author Organization [facility] Address [address] [place] [address] Care Team Providers Care Cane Loader Name Role Phone Indigo Carroll MD Primary Care Provider [phone] Allergies Active Allergy Reactions Criticality Noted Date Comments Sulfamethoxazole-Trimethoprim 2022 ineffective Medications Medication Sig Dispensed Refills Start Date End Date Status Ocrelizumab (OCREVUS IV) Inject into the vein. 0 Active baclofen (LIORESAL) 20 MG tablet Take 1 tablet (20 mg total) by mouth 3 (three) times a day. 0 Active losartan (COZAAR) tablet 50 mg Take 1 tablet (50 mg total) by mouth daily. 0 Active gemfibrozil (LOPID) 600 MG tablet Take 1 tablet (600 mg total) by mouth 2 (two) times a day. One in am and one in pm 0 Active POTASSIUM BICARBONATE PO Take by mouth. 0 Active triamterene-hydrochl orothiazide (MAXZIDE) 75-50 MG per tablet triamterene 75 mg-hydrochlorothiazi de 50 mg tablet 0 08/31/2019 Active valACYclovir (VALTREX) 500 MG tablet TAKE 1 TABLET BY MOUTH EVERY DAY FOR 90 DAYS 0 04/17/2021 Active temazepam (RESTORIL) 7.5 MG capsule Take 1 capsule (7.5 mg total) by mouth every night at bedtime as needed for sleep. 0 Active atorvastatin (LIPITOR) tablet 20 mg 1 tablet (20 mg total). 0 07/17/2023 Active citalopram (CeleXA) 20 MG tablet Take 1 tablet (20 mg total) by mouth daily. 0 11/25/2023 Active Active Problems Problem Noted Date Diagnosed Date Multiple sclerosis 01/11/2021 HLD (hyperlipidemia) 09/22/2020 Family History Medical History Relation Name Comments Heart attack Father Multiple sclerosis Neg Hx Relation Name Status Comments Father Mother Social History Tobacco Use Types Packs/Day Years Used Date Smoking Tobacco: Former Cigarettes Q uit: 2006 Smokeless Tobacco: Never Tobacco Cessation:Counseling Given: Not Answered Sex and Gender Information Value Date Recorded Sex Assigned at Female 01/30/2021 10:48 AM EST Gender Identity Not on file Sexual Orientation Not on file Job Start Date Occupation Industry Not on file Not on file Not on file Last Filed Vital Signs Vital Sign Reading Time Taken Comments Blood Pressure 129/82 12/06/2023 11:34 AM EDT Pulse 67 12/06/2023 11:34 AM EDT Temperature 36.1 C (97 F) 09/25/2023 7:00 AM EDT Respiratory Rate 18 09/25/2023 10:58 AM EDT Oxygen Saturation 95% 09/25/2023 10:58 AM EDT Inhaled Oxygen Concentration - - Weight 74.8 kg (165 lb) 06/07/2023 11:32 AM EDT Height 162.6 cm (5' 4 ) 06/07/2023 11:32 AM EDT Body Mass Index 28.32 06/07/2023 11:32 AM EDT Plan of Treatment Health Maintenance Due Date Last Done Comments Hepatitis C Screening 1955 Depression Screening 1967 BMI Counseling 05/11/1973 Preventative Health Evaluation 05/11/1973 Colon Cancer Screening (Colonoscopy) 05/11/2000 Breast Cancer Screening (Mammogram) 05/11/2005 Fall Risk Assessment 05/11/2020 Osteoporosis Screening (DEXA Scan) 05/11/2020 COVID-19 Vaccine ( season) 2023 04/18/2020, 03/28/2020 Influenza Vaccine (#1) 2024 , 10/25/2020, 10/25/2020, Additional history exists DTap / Tdap / Td (3 - Td or Tdap) 04/11/2025 04/12/2015, 03/14/2007 RSV Adult > 60+ Yrs or (1 - 1-dose 75+ series) 05/11/2030 Shingrix-Zoster Vaccine Completed 12/07/2019, 10/11 Pneumococcal Vaccine Completed 11/24/2020, 11/23/19 20 Hepatitis B Vaccines Aged Out No long er eligible based on patient's age to complete this topic RSV Ped < 20 months Aged Out No longe r eligible based on patient's age to complete this topic Care Teams Cane Loader Relationship Specialty Start Date End Date Indigo Carroll MD [address] [place] [id number] PCP - General Internal Medicine 08/24/20
--- OUTSIDE RECORDS SUMMARY | 2024-09-23 18:53 | XMS_ITS | Clinical Summary ---
Author Organization [facility] Address [address] [place] [address] Phone Care Team Providers Care Ware Finisher Name Role Phone Indigo Carroll MD Primary Care Provider [phone] Allergies Active Allergy Reactions Criticality Noted Date Comments Sulfamethoxazole-Trimethoprim 2022 ineffective Medications omeprazole (PRILOSEC) 20 MG capsule Take 20 mg by mouth daily. 0 Active hydrOXYzine HCL (ATARAX) 10 MG tablet TAKE 1 TABLET BY MOUTH NEEDED EVERY 8 HOURS NEEDED 0 Active fluticasone propionate (FLONASE) 50 mcg/actuation nasal spray USE 2 SPRAYS IN EACH NOSTRIL ONCE DAILY 0 Active losartan (COZAAR) 100 MG tablet 100 mg. 0 Active valACYclovir (VALTREX) 1000 MG tablet TAKE 2 TABLETS BY MOUTH EVERY 12 HOURS 0 Active mupirocin (BACTROBAN) 2 % ointment Apply topically 3 (three) times a day. Active cholecalciferol (VITAMIN D3) 25 MCG (1,000 unit) tablet Take 1,000 Units by mouth daily. Active albuterol (VENTOLIN HFA) 90 mcg/actuation inhaler Inhale 1 puff into the lungs daily as needed. 2 Active baclofen (LIORESAL) 20 MG tablet Take 20 mg by mouth daily. 3 Active ciprofloxacin HCl (CIPRO) 250 MG tablet Take 250 mg by mouth. Only if an infection occurs 3 Active citalopram (CELEXA) 20 MG tablet Take 1 tablet by mouth every morning. 3 Active diazePAM (VALIUM) 5 MG tablet TAKE 1-2 TABLETS BY MOUTH 1 HOUR PRIOR TO PROCEDURE (UPON ARRIVAL TO OFFICE) 3 Active fluoride, sodium, (PREVIDENT 5000 BOOSTER) 1.1 % Pste nightly at bedtime. 3 Active methenamine (HIPREX) 1 gram tablet Take 1 tablet by mouth 2 (two) times a day. 3 Active niacin 100 MG tablet Take 100 mg by mouth 2 (two) times a day. Active semaglutide (OZEMPIC) 1 mg/dose (4 mg/3 mL) subcutaneous injection pen Inject 1 mg under the skin once a week. 3 Active temazepam (RESTORIL) 15 mg capsule Take 1 capsule by mouth nightly at bedtime as needed. 3 Active ocrelizumab (OCREVUS IV) Inject into the vein every 6 (six) months. Active atorvastatin (LIPITOR) 20 MG tablet 20 mg. 4 Active Active Problems Problem Noted Date Diagnosed Date Allergic rhinitis 02/07/2022 10/19/2022 Hypertension 02/07/2022 10/19/2022 Obstructive sleep apnea syndrome 02/07/2022 10/19/2022 Thyroid nodule 02/07/2022 10/19/2022 Assessment & Plan (12/04/2023 4:36 PM EDT): Incidental finding, s/p benign FNA. Clinically euthyroid. No compressive symptoms. Exam unrevealing. Will check TFTs. Will call for records & determine need for & timing of follow up imaging. Will continue to monitor. Assessment & Plan (10/19/2022 9:11 AM EDT): Clinically & biochemically euthyroid. No compressive symptoms. Exam unrevealing. Will call for records & determine need for follow up imaging. Will continue to monitor. Multiple sclerosis 01/11/2021 10/19/2022 HLD (hyperlipidemia) 09/22/2020 10/19/2022 Social History Tobacco Use Types Packs/Day Years Used Date Smoking Tobacco: Former Cigarettes 0.3 20 1 987 - 2007 Passive Smoke Exposure: Past Smokeless Tobacco: Never Tobacco Cessation:Counseling Given: No Alcohol Use Standard Drinks/Week Comments Yes 0 (1 standard drink = 0.6 oz pur e alcohol) ocassionally Education Answer Date Recorded Are you interested in more education? Not on linda e 06/08/2022 Are you concerned about learning? Not on file 06/08/2022 No 06/08/2022 No 06/08/2022 Digital Access Answer Date Recorded No 07/10/2022 No 07/10/2022 Reliable internet access at home? Not on file 07/10/2022 Device with a working camera? Not on file Comments Unknown Sex and Gender Information Value Date Recorded Sex Assigned at Female 07/22/2019 3:37 PM EDT Legal Sex Female 3:31 PM EDT Gender Identity Female 07/22/2019 3:37 PM EDT Sexual Orientation Straight 07/22/2019 3: 37 PM EDT Last Filed Vital Signs Vital Sign Reading Time Taken Comments Blood Pressure 120/70 12/04/2023 9:45 AM EDT Pulse 76 12/04/2023 9:45 AM EDT Temperature 36.6 C (97.8 F) 10/19/2022 8:15 AM EDT Respiratory Rate 16 10/08/2019 9:02 AM EDT Oxygen Saturation 95% 12/04/2023 9:45 AM EDT Inhaled Oxygen Concentration - - Weight 73.9 kg (163 lb) 10/19/2022 8:15 AM EDT Height 163.8 cm (5' 4.49 ) 12/04/2023 9:45 AM ED T Body Mass Index 27.55 10/19/2022 8:15 AM EDT Plan of Treatment Upcoming Encounters Date Type Department Care Team (Late st Contact Info) Description 12/03/2024 2:00 PM EDT Office Visit [facility] [address] [place] [address] Jordyn Benitez MD [address] [place] [address] [address] [place] [address] Health Maintenance Due Date Last Done Comments CREATININE LEVEL 1955 POTASSIUM LEVEL 1955 SMOKING Hx and SMOKELESS TOBACCO SCREENING 05/11/1968 HEPATITIS C SCREENING 05/11/1973 SCREENING FOR DIABETES 05/11/1990 COLOGUARD 05/11/2000 COLONOSCOPY 05/11/2000 COLORECTAL CANCER SCREENING 05/11/2000 FIT TEST 05/11/2000 FOBT 05/11/2000 SIGMOIDOSCOPY 05/11/2000 VIRTUAL COLONOSCOPY 05/11/2000 DEPRESSION SCREENING 10/04/2020 10/05/2019 PNEUMOCOCCAL VACCINES (50+ years) (2 of 2 - PCV) 11/24/2021 11/24/2020 COVID-19 VACCINE (3 - 2023-2 5 season) 2023 04/18/2020, 03/28/2020 MAMMOGRAM 02/02/2024 02/01/2022 BLOOD PRESSURE 06/03/2024 12/04/2023 Adult Td,Tdap Booster 04/11/2025 04/12/2015 , 03/14/2007 LIPID PANEL 11/06/2028 11/07/2023, 10/18/2022 RSV VACCINE (1 - 1-dose 75+ series) 05/11/2030 ZOSTER VACCINES Completed 12/07/2019, 10/12/2019 OSTEOPOROSIS SCREENING INITI AL (ONE-TIME) Completed 06/29/2022 HEPATITIS A VACCINES Aged Out No long er eligible based on patient's age to complete this topic HIB VACCINES Aged Out No longer eligi ble based on patient's age to complete this topic MENINGOCOCCAL VACCINES (ACWY) Aged Out No longer eligible based on patient's age to complete this topic MENINGOCOCCAL VACCINES (B) Aged Out N o longer eligible based on patient's age to complete this topic Medical Devices Not on file Insurance [employer] MEDEX SUPPLEMENT MEDICARE PART A & B [employer] MEDEX SUPPLEMENT MEDICARE PART A & B [employer] MEDEX SUPPLEMENT MEDICARE PART A & B [place] [employer] MEDEX SUPPLEMENT MEDICARE PART A & B [employer] MEDEX SUPPLEMENT MEDICARE PART A & B [employer] MEDEX SUPPLEMENT MEDICARE PART A & B Care Teams Ware Finisher Relationship Specialty Start Date End Date Indigo Carroll MD [address] [place] [phone] [email or web address] PCP - General Internal Medicine 07/22/19 Additional Source Comments The information contained in this document represents components of the legal health record. It is not the complete legal health record.[facility]
--- OUTSIDE RECORDS SUMMARY | 2024-09-23 18:53 | XMS_ITS ---
Author Name [facility] Organization Unknown History of Medication Use Medication Directions Dispensed Refills Start Date End Date Stat us ocrelizumab (OCREVUS) 600 mg in sodium chloride (NS) 0.9 % 500 mL IVPB 600 mg, Intravenous, Once, On Sat09/25/23 at 0845, For 1 doseMust use in-line 0.22 micron filter. - Infusion Rate for first full 600 mg dose or reaction with previous infusion: Start at 40 mL/hr. Increase by 40 mL/hr every 30 minutes. Maximum rate: 200 mL/hr. Duration: 3.5 hours or longer. - Infus 09/25/2023 09/25/2023 completed triamterene-hydroc hlorothiazide (MAXZIDE) 75-50 MG per tablet triamterene 75 mg-hydrochlorothia zide 50 mg tablet 08/31/2019 active gemfibrozil (LOPID) 600 MG tablet Take 1 tablet (600 mg total) by mouth 2 (two) times a day. One in am and one in pm active losartan (COZAAR) tablet 50 mg Take 1 tablet (50 mg total) by mouth daily. active Allergies Allergen Reaction Severity Comment Documented Date Source Statu s SULFAMETHOXAZOLE-TRIMET HOPRIM ineffective 10/19/2022 [facility] active Problems Problem Status Onset Date Problem Type Date of Resoluti on Source Multiple sclerosis active 2021-01-11 ProblemAct [facility] HLD (hyperlipidemia) active 2020-09-22 ProblemAct [facility]
--- OUTSIDE RECORDS SUMMARY | 2024-09-23 18:53 | XMS_ITS | Encounter Summary ---
Author Organization [employer] Address [address] [place] [address] [address] [place] [address] Care Team Providers Care Stenciling Machine Tender Name Role Phone Indigo Carroll MD Primary Care Provider [phone] Reason for Visit * Reason Comments Med Change Request Encounter Details Date Type Department Care Team (Late st Contact Info) Description 08/07/2023 Jaxon Rodriguez [facility] MED[facility] [address] [place] [address] Nuha Jones FNP Psychophysiological insomnia Social History Tobacco Use Types Packs/Day Years Used Date Smoking Tobacco: Former Cigarettes Passive Smoke Exposure: Past Smokeless Tobacco: Never Alcohol Use Standard Drinks/Week Comments Yes 0 (1 standard drink = 0.6 oz pur e alcohol) Alcohol Answer Date Recorded How often do you have a drink containing alcohol ? 0 02/08/2023 How many drinks containing a lcohol do you have on a typical day when you are drinking? 0 02/08/2023 How often do you have six or more drinks on one occasion? 0 02/08/2023 Depression Answer Date Recorded Patient Health Questionnaire-9 Score 0 07/30/2023 Patient Health Questionnaire-9 Score 0 07/30/2023 Last PHQ-9: Questionnaire Data Not on file 0 07/30/2023 Housing Stability Answer Date Recorded What is your housing situation today? I have angelina chacon 11/29/[address] you li ve. Do you have problems with any of the following? None of the above 11/29/2022 Food Insecurity Answer Date Recorded Within the past 12 months, y ou worried that your food would run out before you got money to buy more: Never True 11/29/2022 Within the past 12 months,th e food you bought just didn't last and you didn't have enough money to get more: Never True Transportation Answer Date Recorded In the past 12 months, has l ack of transportation kept you from medical appts, meetings, work or from getting things needed for daily living? No 11/29/2022 Intimate Partner Violence Answer Date R ecorded Within the last year, have y ou been afraid of your partner or ex-partner? 2 02/08/2023 Within the last year, have y ou been humiliated or emotionally abused in other ways by your partner or ex-partner? 2 Within the last year, have y ou been kicked, hit, slapped, or otherwise physically hurt by your partner or ex-partner? 2 02/08/2023 Within the last year, have y ou been raped or forced to have any kind of sexual activity by your partner or ex-partner? 2 02/08/2023 Utilities Answer Date Recorded In the past 12 months, has t he electric, gas, oil or water company threatened to shut off services in your home? No 11/29/2022 Depression Answer Date Recorded Patient Health Questionnaire-2 Score 0 07/30/2023 Comments Unknown Sex and Gender Information Value Date Recorded Sex Assigned at Female 02/16/2022 10:32 AM EST Legal Sex Female 8:36 PM EDT Gender Identity Female 02/16/2022 10:32 AM EST Sexual Orientation Straight 02/16/2022 10 :33 AM EST documented as of this encounter Plan of Treatment Upcoming Encounters Date Type Department Care Team (Late st Contact Info) Description 10/22/2024 11:00 AM EDT Office Visit [facility] MEDICAL [address] [place] [address] Indigo Carroll MD [address] [place] [address] documented as of this encounter Visit Diagnoses Diagnosis Psychophysiological insomnia Persistent disorder of initiating or maintaining sleep documented in this encounter Additional Health Concerns Assessment Noted Time PHQ-9 Depression Total Score: 0 07/30/19 24 12:06 PM EDT documented as of this encounter Care Teams Stenciling Machine Tender Relationship Specialty Start Date End Date Indigo Carroll MD [address] [place] [id number] PCP - General Internal Medicine 02/13/22 documented as of this encounter
[2024-09-23 18:57] LABS: MANUAL DIFF FLAG NO
[2024-09-23 19:04] LABS: Hematocrit 22.4 % (37.0-47.0); Hemoglobin 7.3 g/dl (12.0-16.0); Imm Gran Abs Auto 0.06 X10*3/uL (0.00-0.03); Imm Gran Pct Auto 0.7 % (0.0-0.4); Lymphocytes Absolute Auto 0.8 X10*3/uL (1.2-4.9); Mean Corpuscular HGB Conc 32.6 g/dl (31.0-35.0); Mean Corpuscular Hemoglobin 30.9 pg (27.0-33.0); Mean Corpuscular Volume 94.9 fL (80.0-98.0); NRBC Abs Auto 0.000 X10*3/uL (0.0-0.012); NRBC Pct Auto 0.0 /100WBC (0.0-0.2); Platelet Count 378 X10*3/uL (160-400); Red Blood Count 2.36 X10*6/uL (4.20-5.50); White Blood Count 8.1 X10*3/uL (4.8-10.8)
[2024-09-23 19:11] LABS: INTERNATIONAL NORM RATIO 0.9 (0.9-1.1); Prothrombin Time 10.3 SEC (10.9-12.4)
[2024-09-23 19:13] LABS: Partial Thromboplastin Time 29.1 SEC (26.7-34.1)
[2024-09-23 19:14] VITALS: BP 128/65; PULSE 98; RESP 14; TEMP 36.8; O2SAT 100
[2024-09-23 19:16] LABS: Alanine Aminotransferase 13 U/L (0-31); Albumin Level 4.0 g/dL (3.5-5.0); Alkaline Phosphatase 83 U/L (39-117); Anion Gap 14 (12-20); Aspartate Amino Transferase 31 U/L (5-31); Blood Urea Nitrogen 12 mg/dL (9-16); Calcium 9.1 mg/dL (8.4-10.2); Carbon Dioxide 25 mmol/L (22-29); Chloride 103 mmol/L (96-108); Cholesterol 137 mg/dL (<200); Creatinine Clr Calc Pharmacy 80.3; Estimated Glomerular Filt Rate > 60; HDL Cholesterol 52 mg/dL (>40); Potassium 3.7 mmol/L (3.3-5.1); Sodium 138 mmol/L (135-145); Total Protein 6.3 g/dL (6.5-8.0); Triglycerides 78 mg/dL (<150)
[2024-09-23 19:19] LABS: Stroke Lab Use COMPLETE
[2024-09-23 19:22] LABS: Troponin-I High Sensitivity 40.6 ng/L (<3.5-17.0)
--- NOTE | 2024-09-23 20:00 | PC.NURSE ---
RN did bedside swallow eval- pt coughed with teaspoons of water via spoon- pt failed swallow eval. MD notified. Speech consult needed.
[2024-09-23 20:12] VITALS: BP 146/69; PULSE 95; RESP 12; TEMP 37.3; O2SAT 100
[2024-09-23 20:23] LABS: Cannabinoid Screen Urine Not Detected (Not Detect)
[2024-09-23 21:23] LABS: Troponin-I High Sensitivity 62.0 ng/L (<3.5-17.0)
[2024-09-23 21:41] VITALS: RESP 18
[2024-09-23 22:01] VITALS: BP 150/66; PULSE 92; RESP 16; TEMP 37; O2SAT 99
[2024-09-23 23:36] LABS: Glucose, Whole Blood 80 mg/dL (60-115)
[2024-09-23 23:42] VITALS: BP 144/51; PULSE 92; RESP 12; TEMP 37.1; O2SAT 99
--- NOTE | 2024-09-23 23:44 | P.HPHOSP_ITS ---
History of Present Illness Date of Service: 09/23/24 Attending physician on admission: Alexys [place] Chief Complaint: aphasia Patient is a 69-year-old female with a past medical history significant for CKD 3, HTN, HLD, MS with left lower extremity weakness, MARJAN (no CPAP), recently s/p left TKA on 09/16/2024 at [facility], who presented to the ED due to confusion, expressive aphasia and dysarthria starting around 08:00 when the patient woke up. The patient's last known well time was 21:00 yesterday. She reports that when she woke up she was unable to move her left leg, she does have issues with hip flexion due to her MS however she was unable to move the lower leg which is usually not an issue for her. She had difficulty with her and home physical therapy which she has been doing okay with. She called her multiple times unable to speak with dysarthria. She is questioning whether she took too much oxycodone, she feels she may have taken too by accident. She reports when she had breakfast this morning she was having a hard time swallowing therefore did not eat much. She did take a nap after her physical therapy from about 10:00 to 15:00. When she woke up her symptoms were persistent. On arrival her NIH scale score was 7. She reports she has not had an MS flare in the past 38 years. Upon discharge from [facility] on 09/17/2024 her hemoglobin was 8.5, hemoglobin now is 7.3. The patient does have significant swelling and bruising behind the left knee, she is concerned for a DVT. The patient works as an RN. Review of Systems 2 Constitutional: Constitutional: Denies body ache(s), Denies chills, Denies fatigue, Denies fever(s), Denies headache(s) and Reports weakness Eyes: Eyes: Denies change in vision ENT: Denies headache(s), Denies nasal congestion, Denies sore throat and Denies throat swelling Cardiovascular: Cardiovascular: Denies chest pain, Denies rapid heart rate, Denies lightheadedness and Denies dyspnea Respiratory: Respiratory: Denies chest congestion, Denies cough, Denies dyspnea and Denies wheezing Gastrointestinal: Gastrointestinal: Denies abdominal pain, Denies nausea and Denies vomiting Genitourinary: Genitourinary: Denies dysuria and Denies urinary urgency Musculoskeletal: Musculoskeletal: Reports as per HPI Integumentary/Breasts: Skin/Breast: Denies rash Neurologic: Reports confusion, Denies headache(s) and Reports weakness Psychiatric: Psychiatric: Reports confusion Endocrine: Endocrine: Denies fatigue Hematologic/Lymphatic: Hematologic/Lymphatic: Denies easy bleeding and Denies easy bruising Allergic/Immunologic: Allergic/Immunologic: Denies throat swelling and Denies wheezing [facility] Medical History (Updated 09/23/24 @ 23:51 by Sonia Shah PA-C) MARJAN (obstructive sleep apnea) HLD (hyperlipidemia) CKD (chronic kidney disease) HTN (hypertension) Multiple sclerosis Functional capacity: uses cane/walker Surgical History (Updated 09/23/24 @ 23:51 by Sonia Shah PA-C) Status post total left knee replacement Social History (Updated 11/17/19 @ 07:49 by Stefani Alvarado DO) Smoked in Last 30 Days: No Use of substances other than those prescribed or required for medical reasons: No Advance Directives: No Advance Directives Information Provided: No Narrative: no smoking, etoh or drug use Meds Allergies Allergy/AdvReac Type Severity Reaction Status Date / Time No Known Allergies Allergy Verified 09/23/24 18:39 Active Medications: Current Medications Acetaminophen (Acetaminophen 325 Mg Tablet) 650 mg PO Q6H PRN PRN Reason: Pain, Mild 1-3,fever,headache Baclofen (Baclofen 20 Mg Tablet) 20 mg PO TID MALLIKA Calcium Carbonate (Calcium Carbonate 750 Mg Tab.Chew) 750 mg PO Q4H PRN PRN Reason: Heartburn Hydromorphone HCl (Hydromorphone Hcl 0.5 Mg/0.5 Ml Syringe) 0.5 mg IVPUSH Q4H PRN; Protocol PRN Reason: Pain, Severe (Pain Scale 7-10) Lactated Ringer's (Lr) 1,000 mls @ 75 mls/hr IVCONT .[id number] MALLIKA Magnesium Hydroxide (Milk Of Magnesia 30 Ml Oral.Susp) 30 ml PO DAILY PRN PRN Reason: Constipation Melatonin (Melatonin 3 Mg Tablet) 6 mg PO BEDTIME PRN PRN Reason: Insomnia Morphine Sulfate (Morphine Sulfate 4 Mg/Ml Cartridge) 2 mg IVPUSH Q4H PRN; Protocol PRN Reason: Pain, Moderate(Pain Scale 4-6) Ondansetron HCl (Ondansetron Hcl 4 Mg/2 Ml Vial) 4 mg IVPUSH Q8H PRN PRN Reason: Nausea and Vomiting Sodium Chloride (0.9 % Sodium Chloride Flush 3 Ml Syringe) 3 ml IVFLUSH QSHIFT MALLIKA Physical Exam 2 Vital Signs and Narrative: Vital Signs: Last Vital Signs Temp 98.6 F 09/23/24 22:01 Pulse 92 09/23/24 22:01 Resp 16 09/23/24 22:01 BP 150/66 H 09/23/24 22:01 Pulse Ox 99 09/23/24 22:01 O2 Del Method Room Air 09/23/24 22:01 BMI result Body Mass Index 27.9 General: AOx3, no acute distress. slurred speech Resp: CTA bilaterally CVS: S1, S2, RRR GI: +BS, NT, no distention Skin: Warm, dry Neuro: Cranial nerves II-XII grossly intact bilaterally. unable to flex LLE (baseline), weakness with dorsiflexion and plantar flexion LLE (?baseline). sensation intact. some expresive aphasia, dysarthria. Extremities: No pitting edema. LLE with significant bruising in the popliteal space and lower calf. Psych: Appropriate affect Const: General: confusion Orientation/consciousness: confusion Neuro: General: confusion Results Labs 09/23/24 23:50 09/23/24 18:51 Labs: Laboratory Results - last 24 hr 09/23/24 09/23/24 09/23/24 18:23 18:38 18:51 MCV 94.9 MCH 30.9 MCHC 32.6 RDW 13.1 Plt Count 378 MPV 8.5 L Immature Gran % (Auto) 0.7 H Neut % (Auto) 77.9 H Lymph % (Auto) 9.5 L Clay % (Auto) 9.1 Eos % (Auto) 2.2 Baso % (Auto) 0.6 Lymph # (Auto) 0.8 L Clay # (Auto) 0.7 Eos # (Auto) 0.2 Baso # (Auto) 0.1 Abs Immat Gran (auto) 0.06 H Absolute Neuts (auto) 6.3 Absolute Nucleated RBC 0.000 Nucleated RBC % (auto) 0.0 PT 10.3 L Whole Blood PT 11.7 INR 0.9 Whole Blood INR 1.0 APTT 29.1 Anion Gap 14 Estim Creat Clear Calc 80.3 Estimated GFR > 60 POC Glucose 97 Random Glucose 106 Calcium 9.1 D Total Bilirubin 1.0 Direct Bilirubin 0.4 AST 31 ALT 13 Alkaline Phosphatase 83 Total Protein 6.3 L Albumin 4.0 Triglycerides 78 Cholesterol 137 LDL Cholesterol, Calc 70 HDL Cholesterol 52 Urine Opiates Screen Ur Buprenorphine Scrn Ur Oxycodone Screen Urine Methadone Screen Urine Fentanyl Screen Ur Barbiturates Screen Ur Phencyclidine Scrn Ur Amphetamines Screen U Benzodiazepines Scrn Urine Cocaine Screen U Marijuana (THC) Screen Ethyl Alcohol < 10 Blood Type Antibody Screen 09/23/24 09/23/24 09/23/24 19:36 20:53 23:31 MCV MCH MCHC RDW Plt Count MPV Immature Gran % (Auto) Neut % (Auto) Lymph % (Auto) Clay % (Auto) Eos % (Auto) Baso % (Auto) Lymph # (Auto) Clay # (Auto) Eos # (Auto) Baso # (Auto) Abs Immat Gran (auto) Absolute Neuts (auto) Absolute Nucleated RBC Nucleated RBC % (auto) PT Whole Blood PT INR Whole Blood INR APTT Anion Gap Estim Creat Clear Calc Estimated GFR POC Glucose 80 Random Glucose Calcium Total Bilirubin Direct Bilirubin AST ALT Alkaline Phosphatase Total Protein Albumin Triglycerides Cholesterol LDL Cholesterol, Calc HDL Cholesterol Urine Opiates Screen Not Detected Ur Buprenorphine Scrn Not Detected Ur Oxycodone Screen Positive H Urine Methadone Screen Not Detected Urine Fentanyl Screen Not Detected Ur Barbiturates Screen Not Detected Ur Phencyclidine Scrn Not Detected Ur Amphetamines Screen Not Detected U Benzodiazepines Scrn Not Detected Urine Cocaine Screen Not Detected U Marijuana (THC) Screen Not Detected Ethyl Alcohol Blood Type A Positive Antibody Screen NEGATIVE Assessment and Plan (1) Expressive aphasia: Status: Acute (2) Left leg weakness: Status: Acute (3) Dysarthria: Status: Acute (4) Anemia: Status: Acute (5) Elevated troponin I level: Status: Acute Plan Patient is a 69-year-old female with a past medical history significant for CKD 3, HTN, HLD, MS with left lower extremity weakness, MARJAN (no CPAP), recently s/p left TKA on 09/16/2024 at [facility], who presented to the ED due to confusion, expressive aphasia and dysarthria starting around 08:00 when the patient woke up. Expressive aphasia, left lower extremity weakness, dysarthria, improving - head CT and CTA head/neck negative - venous duplex LLE negative for DVT - NIH score 7 on arrival - failed bedside swallow - given ASA rectally - lipid panel normal - H+H 7.3/22.4, was 8.5/28.9 on discharge from [facility] on 09/17 - EKG with NSR - NPO pending formal speech eval - repeat H+H now, possible blood transfusion discussed, pt amendable - MRI brain - echo with bubble study - aspiration precautions - neurology consult - monitor CBC elevated troponin, likely type 2 NSTEMI from demand ischemia - trop 40.6, 62 on repeat - pt not having chest pain or SOB - H+H 7.3/22.4 - following H+H - EKG without ischemia - echo ordered above - monitor on tele CKD3 - cr ok - avoid nephrotoxins - follow cr HTN - BP ok, continue home meds after swallow eval HLD - lipid panel ok - continue home meds after swallow eval MS - on ocrevis, no flares x37 years - continue baclofen after swallow eval MAJRAN - no CPAP med rec pending full code VTE prophy: SCDs due to anemia Pt with expressive aphasia, left lower extremity weakness and dysarthria, failed bedside swallow evaluation, requiring admission for at least 2 midnights stay for further evaluation and neurology consultation. Quality Stroke Does the patient have a stroke diagnosis?: No VTE Prior VTE?: No VTE Risk Level:: Medical - moderate - high VTE Device Contraindication: N/A - Device Ordered VTE Drug Contraindication: Treatment Not Indicated
[2024-09-23 23:57] LABS: Hematocrit 22.3 % (37.0-47.0); Hemoglobin 7.2 g/dl (12.0-16.0)
[2024-09-24] VITALS (9 sets, daily range): BP systolic 112–145; BP diastolic 45–62; PULSE 81–90; RESP 11–22; TEMP 36.6–37.2; O2SAT 97–100
[2024-09-24] MEDS: Lactated Ringers 1,000 ML 75 ML IVCONT ×2 (00:07→14:09)
[2024-09-24 06:30] LABS: Hematocrit 22.5 % (37.0-47.0); Hemoglobin 7.2 g/dl (12.0-16.0); Mean Corpuscular HGB Conc 32.0 g/dl (31.0-35.0); Mean Corpuscular Hemoglobin 30.5 pg (27.0-33.0); Mean Corpuscular Volume 95.3 fL (80.0-98.0); NRBC Abs Auto 0.000 X10*3/uL (0.0-0.012); NRBC Pct Auto 0.0 /100WBC (0.0-0.2); Platelet Count 376 X10*3/uL (160-400); Red Blood Count 2.36 X10*6/uL (4.20-5.50); White Blood Count 8.2 X10*3/uL (4.8-10.8)
--- NOTE | 2024-09-24 06:30 | PC.NURSE ---
stroke education given verbally- no handouts currently available at this time.
[2024-09-24 06:35] LABS: Anion Gap 13 (12-20); Blood Urea Nitrogen 11 mg/dL (9-16); Calcium 8.8 mg/dL (8.4-10.2); Carbon Dioxide 24 mmol/L (22-29); Chloride 106 mmol/L (96-108); Creatinine Clr Calc Pharmacy 81.5; Estimated Glomerular Filt Rate > 60; Potassium 3.6 mmol/L (3.3-5.1); Sodium 139 mmol/L (135-145)
--- NOTE | 2024-09-24 07:00 | CA_ITS ---
Transthoracic Echocardiogram Patient (Last, First, Middle): Caitie Nicholas, Gender: Female Date of : 1955 Age: 69 Procedure Date: 09/24/2024 Procedure Type: Transthoracic Echocardiogram Location: ER Height: 162.56 cm Weight: 73.48 kg BSA: 1.79 m2 Heart Rate: 84 bpm BP: 143 / 53 mmHg Health Underwriter: SB/RC Referring MD: Sonia Shah PA-C Symptoms: ?CVA Study Quality: Adequate w contrast ECG Rhythm: Sinus Conclusions: - Normal left ventricular size, thickness, systolic function, and wall motion. The visually estimated ejection fraction is between 65-70%. Diastolic function is normal for age. - Normal right ventricular cavity size and systolic function. - There is no evidence of interatrial shunt by color Doppler and contrast. Findings Procedure Information Contrast agent, definity, is being given per protocol without apparent complications. The quality of the study was technically difficult. The study quality is limited by lung artifact. Left Ventricle Normal left ventricular size, thickness, systolic function, and wall motion. The visually estimated ejection fraction is between 65-70%. Diastolic function is normal for age. Right Ventricle Normal right ventricular cavity size and systolic function. Atria Both atria are normal in size. There is no evidence of interatrial shunt by color Doppler and contrast. Aortic Valve Normal aortic valve structure and function. There is no aortic valve stenosis. There is trace (trivial) aortic valve regurgitation. Mitral Valve The mitral valve appears normal. There is no mitral valve regurgitation. There is no mitral valve stenosis. Pulmonic Valve The pulmonic valve is likely normal. Tricuspid Valve Normal tricuspid valve structure. There is no tricuspid valve regurgitation. Tricuspid regurgitation envelope is inadequate for calculation of right ventricular systolic pressure. Normal right atrial pressure. Great Vessels All visible segments of the aorta are normal in size. Venous The inferior vena cava is normal in size and collapses greater than 50% with inspiration. Pericardium/Pleural There is no evidence of pericardial effusion. Prior Study Comparison No prior study available for comparison. Measurements 2D Linear Measurements IVSd: 1.01 0.6-0.9/0.6-1.0 cm LVIDd: 4.84 3.9-5.3/4.2-5.9 cm LVIDd Index: 2.70 2.4-3.2/2.2-3.1 cm/m2 LVIDs: 3.49 2.0-3.6 cm LVPWd: 0.95 0.7-1.1 cm LA Diam: 3.00 2.7-3.8/3.0-4.0 cm LAIDs Index: 1.68 1.5-2.3 cm/m2 LV Mass: 209.67 67-162/88-224 g LV Mass Index: 117.13 43-95/49-115 g/m2 LVOT Diam: 2.00 3.0+(-)1.3 cm 2D Systolic Function EF 4C: 73.80 >55% EF 2C: 74.50 >55% EF BiP: 74.80 >55% Mitral Valve MV Pk E: 0.75 MV PK A: 1.03 MV Decel Time: 207.00 E/A: 0.70 E'Lateral: 9.79 E'Medial: 8.05 E/E' Med: 9.40 E/E' Lat: 7.70 PHT: 61.00 MVA PHT: 3.61 Decel [place]: 3.64 Aortic Valve AoV Pk Santosh: 1.59 AoV Mn Santosh: 1.05 AoV VTI: 0.31 AoV Pk Grad: 10.00 Aov Mn Grad: 5.00 DREW Cont.VTI: 2.51 LVOT LVOT Pk Santosh: 1.14 LVOT Mn Santosh: 0.76 LVOT VTI: 0.25 LVOT Pk Grad: 5.00 LVOT Mn Grad: 3.00 LVOT Diam: 2.00 LVOT Area: 3.14 Diastolic Function MV Pk E: 0.75 MV Pk A: 1.03 E/A: 0.70 E'Medial: 8.05 E/E' Med: 9.40 E' Laterial: 9.79 E/E' Lat: 7.70 Right Ventricle TAPSE (mm): 25.20 TVS' Santosh: 15.30 Tricuspid Valve RA Press: 3.00 Great Vessels Aorta Sinus of Valsalva: 3.20 2.0-3.5 cm Ao Asc: 3.30 2.1-3.4 cm Pulmonary Veins Pulm Vein S/D 1.10 Pulmonary Valve PV Pk Santosh: 1.07 Peak PV Grad: 5.00 Updated in Other Vendor System with Status of Final Pravin Ball MD electronically signed on 09/24/2024 10:58:31 PM with status of Final
--- NOTE | 2024-09-24 08:24 | PHA.MEDREC ---
Addendum entered by Hossein Jones PharmD 09/24/24 08:33: reviewed Original Note: Pharmacy Consult ? Medication Reconciliation Pharmacy has completed the medication reconciliation. Spoke to patient to confirm med list. Patient had a list of her medications on her phone. Patient states she is not taking Celocoxib 100 mg Buoropiom 150 mg and Naltrexone 50 mg. Patient confirmed Yuvafem 10 mcg every Saturday and Fridays, Alprazolam 0.25 mg at bedtime, even though claims has Alprazolam 0.25 mg BID. Patient reports she gets Ocrelizumab 300 mg every 6 months, next dose is in October. Patient had all her morning medications today.
--- NOTE | 2024-09-24 09:45 | MHC.CM.PN ---
IMM 09/24/24, Pt. lives with her , her PCP is: Indigo Glover at [facility]. Her , Chriss is her HCP, copy requested. She is active with [facility] for PT only, referral sent via care port. For DME, she uses a walker. to transport home at DC, DCP; home, resume VNA services. CM to follow for DC needs.
--- NOTE | 2024-09-24 10:04 | MHC.STROKE ---
Met with patient in room 21. Pt awake, alert and oriented x 4. Seen by Dr. Corrales this morning. Plan is for MRI Stroke Education reviewed with patient. Pamphlet provided Risk factors discussed including medical hx, medications, social hx, recent surgery, activity/diet. All questions answered. Plan of care discussed. Will continue to assist as needed. As of now, MRI planned for 1430
--- NOTE | 2024-09-24 10:25 | PM.NEUROCN ---
History of Present Illness Data of Consult Service Date: 09/24/24 Primary Care Provider: Unknown Physician HPI Reason for consult: Difficulty speaking 69-year-old female with a past medical history significant for CKD 3, HTN, HLD, MS with left lower extremity weakness, MARJAN (no CPAP), recently s/p left TKA on 09/16/2024 at [facility], who presented to the ED due to confusion, expressive aphasia and dysarthria. She said that this might have happened as she took oxycodone due to pain related to lift knee surgery. This morning she was feeling better. Initially she had difficulty speaking but also generalized weakness. There was no headache. No recent cold or flu-like illness. Review of Systems Review of Systems: As per HPI. [facility] Past Medical History Medical History MARJAN (obstructive sleep apnea) HLD (hyperlipidemia) CKD (chronic kidney disease) HTN (hypertension) Multiple sclerosis Surgical History Surgical History Status post total left knee replacement Social History Social History (Updated 11/17/19 @ 07:49 by Stefani Alvarado DO) Smoked in Last 30 Days: No Use of substances other than those prescribed or required for medical reasons: No Advance Directives: No Advance Directives Information Provided: No service: No Meds Allergies Allergy/AdvReac Type Severity Reaction Status Date / Time No Known Allergies Allergy Verified 09/23/24 18:39 Active Medications: Current Medications Baclofen (Baclofen 20 Mg Tablet) 20 mg PO TID [facility] Last Admin: 09/24/24 09:30 Dose: Not Given Calcium Carbonate (Calcium Carbonate 750 Mg Tab.Chew) 750 mg PO Q4H PRN PRN Reason: Heartburn Hydromorphone HCl (Hydromorphone Hcl 0.5 Mg/0.5 Ml Syringe) 0.5 mg IVPUSH Q4H PRN; Protocol PRN Reason: Pain, Severe (Pain Scale 7-10) Last Admin: 09/24/24 05:11 Dose: 0.5 mg Lactated Ringer's (Lr) 1,000 mls @ 75 mls/hr IVCONT .[id number] [facility] Last Admin: 09/24/24 00:07 Dose: 75 mls/hr Acetaminophen (Ofirmev) 1,000 mg in 100 mls @ 400 mls/hr IV Q6H [facility] Last Admin: 09/24/24 09:28 Dose: 400 mls/hr Magnesium Hydroxide (Milk Of Magnesia 30 Ml Oral.Susp) 30 ml PO DAILY PRN PRN Reason: Constipation Melatonin (Melatonin 3 Mg Tablet) 6 mg PO BEDTIME PRN PRN Reason: Insomnia Ondansetron HCl (Ondansetron Hcl 4 Mg/2 Ml Vial) 4 mg IVPUSH Q8H PRN PRN Reason: Nausea and Vomiting Sodium Chloride (0.9 % Sodium Chloride Flush 3 Ml Syringe) 3 ml IVFLUSH QSHIFT [facility] Last Admin: 09/24/24 09:30 Dose: Not Given Home Medications ?Medication ?Instructions ?Recorded ?Confirmed ?Last Taken ?Type acetaminophen 325 mg tablet 650 mg PO DAILY PRN Pain 09/24/24 09/24/24 Unknown History alprazolam 0.25 mg tablet 0.25 mg PO BEDTIME 09/24/24 09/24/24 09/23/24 History ascorbic acid (vitamin C) 500 mg 500 mg PO BEDTIME 09/24/24 09/24/24 09/23/24 History tablet (Vitamin C) atorvastatin 20 mg tablet 20 mg PO BEDTIME 09/24/24 09/24/24 09/23/24 History baclofen 20 mg tablet 20 mg PO TID 09/24/24 09/24/24 09/24/24 History cholecalciferol (vitamin D3) 125 125 mcg PO DAILY 09/24/24 09/24/24 09/24/24 History mcg (5,000 unit) tablet (Vitamin D3) citalopram 20 mg tablet 20 mg PO DAILY 09/24/24 09/24/24 09/24/24 History estradiol 10 mcg vaginal tablet 10 mcg vaginal MOFR 09/24/24 09/24/24 09/21/24 History (Yuvafem) fluticasone propionate 50 1 spray intranasal BEDTIME 09/24/24 09/24/24 09/23/24 History mcg/actuation nasal spray,suspension losartan 100 mg tablet 100 mg PO DAILY 09/24/24 09/24/24 09/24/24 History methenamine hippurate 1 gram tablet 1 g PO BID 09/24/24 09/24/24 09/24/24 History ocrelizumab 30 mg/mL intravenous 300 mg IV [id number] 09/24/24 09/24/24 Unknown History solution oxycodone 5 mg tablet 5 - 10 mg PO Q4H PRN moderate pain 09/24/24 09/24/24 Unknown History tramadol 50 mg tablet 50 - 100 mg PO Q6H PRN mild pain 09/24/24 09/24/24 Unknown History valacyclovir 500 mg tablet 500 mg PO DAILY 09/24/24 09/24/24 09/24/24 History Physical Exam Vital Signs: Vital Signs: Last Vital Signs Temp 98.0 F 09/24/24 08:00 Pulse 81 09/24/24 08:00 Resp 16 09/24/24 08:00 BP 143/52 H 09/24/24 08:00 Pulse Ox 99 09/24/24 08:00 O2 Del Method Room Air 09/24/24 08:00 BMI result Body Mass Index 27.9 Neuro: Other: She is alert and awake with normal spontaneity of speech fluency comprehension and affect. Face is symmetrical. Visual rubio are full. There was no focal arm weakness. She was hesitant to move her left leg because of recent surgery but had no trouble moving right. Plantars were flexor. She was wiggling her toes. Results Labs 09/24/24 05:59 09/24/24 05:59 Labs: Short CBC 09/23/24 09/23/24 09/24/24 Range/Units 18:51 23:50 05:59 WBC 8.1 8.2 (4.8-10.8) X10*3/uL Hgb 7.3 L 7.2 L 7.2 L (12.0-16.0) g/dl Hct 22.4 L 22.3 L 22.5 L (37.0-47.0) % Plt Count 378 376 (160-400) X10*3/uL BMP 09/23/24 09/24/24 18:51 05:59 Sodium 138 139 Potassium 3.7 3.6 Chloride 103 106 Carbon Dioxide 25 24 BUN 12 11 Creatinine 0.65 0.64 Calcium 9.1 D 8.8 Liver Function 09/23/24 Range/Units 18:51 Total Bilirubin 1.0 (0.0-1.0) mg/dL Direct Bilirubin 0.4 (0.0-0.5) mg/dL AST 31 (5-31) U/L ALT 13 (0-31) U/L Alkaline Phosphatase 83 (39-117) U/L Albumin 4.0 (3.5-5.0) g/dL Head CT revealed extensive bilateral hypodensities with no obvious acute lesion. CTA did not reveal any vascular lesion. 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 Yesterday she had multiple symptoms including difficulty speaking. This could be related to toxic encephalopathy related to medications or it could also be another lesion. If possible, obtain a noncontrast MRI of brain to see if there was any area of restricted diffusion that could explain her symptoms. This would help further manage her brain condition. Procedures Date of Service Date of Service: 09/24/24
--- NOTE | 2024-09-24 11:14 | P.PNIM_ITS ---
Subjective Subjective Date of Service: 09/24/24 Interval History: left knee pain dysarthria resolved Physical Exam 2 Vital Signs: Vital Signs: Last Vital Signs Temp 98.0 F 09/24/24 08:00 Pulse 81 09/24/24 08:00 Resp 16 09/24/24 08:00 BP 143/52 H 09/24/24 08:00 Pulse Ox 99 09/24/24 08:00 O2 Del Method Room Air 09/24/24 08:00 BMI result Body Mass Index 27.9 Neuro: Other: She is alert and awake with normal spontaneity of speech fluency comprehension and affect. Face is symmetrical. Visual rubio are full. There was no focal arm weakness. She was hesitant to move her left leg because of recent surgery but had no trouble moving right. Plantars were flexor. She was wiggling her toes. Objective Data Active Medications Baclofen (Baclofen 20 Mg Tablet) 20 mg PO TID [facility] Last Admin: 09/24/24 09:30 Dose: Not Given Documented By: LORE Non-Admin Reason: NPO Calcium Carbonate (Calcium Carbonate 750 Mg Tab.Chew) 750 mg PO Q4H PRN PRN Reason: Heartburn Hydromorphone HCl (Hydromorphone Hcl 0.5 Mg/0.5 Ml Syringe) 0.5 mg IVPUSH Q4H PRN; Protocol PRN Reason: Pain, Severe (Pain Scale 7-10) Last Admin: 09/24/24 05:11 Dose: 0.5 mg Documented By: THIEN Lactated Ringer's (Lr) 1,000 mls @ 75 mls/hr IVCONT .[id number] [facility] Last Admin: 09/24/24 00:07 Dose: 75 mls/hr Documented By: THIEN Acetaminophen (Ofirmev) 1,000 mg in 100 mls @ 400 mls/hr IV Q6H [facility] Last Admin: 09/24/24 09:28 Dose: 400 mls/hr Documented By: LORE Magnesium Hydroxide (Milk Of Magnesia 30 Ml Oral.Susp) 30 ml PO DAILY PRN PRN Reason: Constipation Melatonin (Melatonin 3 Mg Tablet) 6 mg PO BEDTIME PRN PRN Reason: Insomnia Ondansetron HCl (Ondansetron Hcl 4 Mg/2 Ml Vial) 4 mg IVPUSH Q8H PRN PRN Reason: Nausea and Vomiting Sodium Chloride (0.9 % Sodium Chloride Flush 3 Ml Syringe) 3 ml IVFLUSH QSHIFT [facility] Last Admin: 09/24/24 09:30 Dose: Not Given Documented By: LORE Non-Admin Reason: IV Running Labs 09/24/24 05:59 09/24/24 05:59 Labs: Laboratory Results - last 24 hr 09/23/24 09/23/24 09/23/24 18:23 18:38 18:51 MCV 94.9 MCH 30.9 MCHC 32.6 RDW 13.1 Plt Count 378 MPV 8.5 L Immature Gran % (Auto) 0.7 H Neut % (Auto) 77.9 H Lymph % (Auto) 9.5 L [place] % (Auto) 9.1 Eos % (Auto) 2.2 Baso % (Auto) 0.6 Lymph # (Auto) 0.8 L [place] # (Auto) 0.7 Eos # (Auto) 0.2 Baso # (Auto) 0.1 Abs Immat Gran (auto) 0.06 H Absolute Neuts (auto) 6.3 Absolute Nucleated RBC 0.000 Nucleated RBC % (auto) 0.0 PT 10.3 L Whole Blood PT 11.7 INR 0.9 Whole Blood INR 1.0 APTT 29.1 Anion Gap 14 Estim Creat Clear Calc 80.3 Estimated GFR > 60 POC Glucose 97 Random Glucose 106 Calcium 9.1 D Total Bilirubin 1.0 Direct Bilirubin 0.4 AST 31 ALT 13 Alkaline Phosphatase 83 Total Protein 6.3 L Albumin 4.0 Triglycerides 78 Cholesterol 137 LDL Cholesterol, Calc 70 HDL Cholesterol 52 Urine Opiates Screen Ur Buprenorphine Scrn Ur Oxycodone Screen Urine Methadone Screen Urine Fentanyl Screen Ur Barbiturates Screen Ur Phencyclidine Scrn Ur Amphetamines Screen U Benzodiazepines Scrn Urine Cocaine Screen U Marijuana (THC) Screen Ethyl Alcohol < 10 Blood Type Antibody Screen 09/23/24 09/23/24 09/23/24 19:36 20:53 23:31 MCV MCH MCHC RDW Plt Count MPV Immature Gran % (Auto) Neut % (Auto) Lymph % (Auto) [place] % (Auto) Eos % (Auto) Baso % (Auto) Lymph # (Auto) [place] # (Auto) Eos # (Auto) Baso # (Auto) Abs Immat Gran (auto) Absolute Neuts (auto) Absolute Nucleated RBC Nucleated RBC % (auto) PT Whole Blood PT INR Whole Blood INR APTT Anion Gap Estim Creat Clear Calc Estimated GFR POC Glucose 80 Random Glucose Calcium Total Bilirubin Direct Bilirubin AST ALT Alkaline Phosphatase Total Protein Albumin Triglycerides Cholesterol LDL Cholesterol, Calc HDL Cholesterol Urine Opiates Screen Not Detected Ur Buprenorphine Scrn Not Detected Ur Oxycodone Screen Positive H Urine Methadone Screen Not Detected Urine Fentanyl Screen Not Detected Ur Barbiturates Screen Not Detected Ur Phencyclidine Scrn Not Detected Ur Amphetamines Screen Not Detected U Benzodiazepines Scrn Not Detected Urine Cocaine Screen Not Detected U Marijuana (THC) Screen Not Detected Ethyl Alcohol Blood Type A Positive Antibody Screen NEGATIVE 09/24/24 05:59 MCV 95.3 MCH 30.5 MCHC 32.0 RDW 13.2 Plt Count 376 MPV 8.6 L Immature Gran % (Auto) Neut % (Auto) Lymph % (Auto) [place] % (Auto) Eos % (Auto) Baso % (Auto) Lymph # (Auto) [place] # (Auto) Eos # (Auto) Baso # (Auto) Abs Immat Gran (auto) Absolute Neuts (auto) Absolute Nucleated RBC 0.000 Nucleated RBC % (auto) 0.0 PT Whole Blood PT INR Whole Blood INR APTT Anion Gap 13 Estim Creat Clear Calc 81.5 Estimated GFR > 60 POC Glucose Random Glucose 84 Calcium 8.8 Total Bilirubin Direct Bilirubin AST ALT Alkaline Phosphatase Total Protein Albumin Triglycerides Cholesterol LDL Cholesterol, Calc HDL Cholesterol Urine Opiates Screen Ur Buprenorphine Scrn Ur Oxycodone Screen Urine Methadone Screen Urine Fentanyl Screen Ur Barbiturates Screen Ur Phencyclidine Scrn Ur Amphetamines Screen U Benzodiazepines Scrn Urine Cocaine Screen U Marijuana (THC) Screen Ethyl Alcohol Blood Type Antibody Screen Assessment and Plan (1) Dysarthria: Status: Acute Plan 69F PMH hypertension, hyperlipidemia, multiple sclerosis with left lower extremity weakness, MARJAN not on CPAP, recent left TKA on 09/16/2024 presented with dysarthria Dysarthria Acute toxic metabolic encephalopathy due to oxycodone and pain Rule out stroke, check MRI Neuro appreciated Mild elevated troponin Check echo, flat, no chest pain CKD 3 No evidence of CKD 3, creatinine normal Anemia Unspecified, check iron studies Hypertension Losartan MS Baclofen DVT prophylaxis Lovenox Full Code reason for continued hospitalization: MRI, workup anemia Quality Stroke Does the patient have a stroke diagnosis?: No VTE Prior VTE?: No VTE Risk Level:: Medical - moderate - high VTE Device Contraindication: N/A - Device Ordered VTE Drug Contraindication: Treatment Not Indicated
[2024-09-24 11:48] LABS: Iron 61 mcg/dL (30-160); Percent Iron Saturation 26 % (15-50); Total Iron Binding Capacity 236 mcg/dL (228-428); Unsaturated Iron Binding 175 ug/dL
[2024-09-24 12:01] LABS: Ferritin 175 ng/mL (10-250)
--- NOTE | 2024-09-24 14:08 | MHC.SL.SWA ---
Speech Pathologist Impression: Risk of Aspiration Risk of Aspiration Due to: Neuro (Underlying MS, concern for acute CVA) Dysphasia Diet Status:Upgrade from NPO, start REGULAR/THIN Liquid Consistency and Strategies for Safe Swallow: Liquid Intake Recommendation: Thin Solid Food Consistency: Dietary Recommendations: Regular Oral Medication Intake: Whole with Liquid Please contact the pharmacy regarding appropriate crushable or liquid drug formulations that are available whenever modified delivery is recommended. Supervision While Eating and Drinking for Safe Swallow: None Needed Recommendation for Speech: Inpatient Speech Therapy Comment: 1 f/u to monitor tolerance Frequency/Duration: Date Range for Service Req: Timeline to reassess: Foreign Broadcast Specialist Clinican/Clinical Fellow: No Supervisory Statement: I have reviewed and agree with the student/clinical fellow's documentation: N/A Speech Language Pathologist: Ofelia Mistry M.A., CCC-DECORATOR MANNEQUIN
--- NOTE | 2024-09-24 14:25 | PC.NURSE ---
Per Dr. Bernal patient can be taken off telemetry and fluids for MRI.
--- NOTE | 2024-09-24 19:24 | PC.NURSE ---
assumed care of pt at this time, pt at MRI.
--- NOTE | 2024-09-24 20:15 | MHC.EDTECH ---
@2009 The patient requested for her dinner to be warmed up. Dinner was warmed up, the patient boosted and sat up in the bed. Dinner placed on the table and set up over her. The patient was instructed to use her call cool when she is finished and ready to get ready for bed.
[2024-09-24] MEDS: Milk of Magnesia 30 ML ORAL.SUSP PO (20:37)
[2024-09-25 02:20] VITALS: BP 142/62; PULSE 81; RESP 17; TEMP 36.5; O2SAT 96
[2024-09-25 04:00] VITALS: BP 115/57; PULSE 85; RESP 18; TEMP 36.2; O2SAT 97
[2024-09-25] MEDS: Lactated Ringers 1,000 ML 75 ML IVCONT (06:29)
[2024-09-25 07:13] VITALS: BP 144/62; PULSE 84; RESP 17; TEMP 36.3; O2SAT 99
[2024-09-25 07:14] LABS: Hematocrit 24.8 % (37.0-47.0); Hemoglobin 7.9 g/dl (12.0-16.0); Mean Corpuscular HGB Conc 31.9 g/dl (31.0-35.0); Mean Corpuscular Hemoglobin 30.5 pg (27.0-33.0); Mean Corpuscular Volume 95.8 fL (80.0-98.0); NRBC Abs Auto 0.000 X10*3/uL (0.0-0.012); NRBC Pct Auto 0.0 /100WBC (0.0-0.2); Platelet Count 429 X10*3/uL (160-400); Red Blood Count 2.59 X10*6/uL (4.20-5.50); White Blood Count 9.7 X10*3/uL (4.8-10.8)
[2024-09-25 07:28] LABS: Anion Gap 12 (12-20); Blood Urea Nitrogen 10 mg/dL (9-16); Calcium 8.9 mg/dL (8.4-10.2); Carbon Dioxide 24 mmol/L (22-29); Chloride 105 mmol/L (96-108); Creatinine Clr Calc Pharmacy 91.5; Estimated Glomerular Filt Rate > 60; Potassium 3.8 mmol/L (3.3-5.1); Sodium 137 mmol/L (135-145)
[2024-09-25 08:05] LABS: Folate 6.7 ng/mL (> or = 4.0); Vitamin B12 1661 pg/mL (200-900)
[2024-09-25 08:59] VITALS: BP 144/62
--- NOTE | 2024-09-25 10:41 | MHC.SL.SWA ---
Speech Pathologist Impression: WFL Risk of Aspiration Due to: Underlying MS Dysphasia Diet Status:No Change Liquid Consistency and Strategies for Safe Swallow: Liquid Intake Recommendation: Thin Liquid Intake Strategies: Unrestricted Solid Food Consistency: Dietary Recommendations: Regular Oral Medication Intake: Whole with Liquid Please contact the pharmacy regarding appropriate crushable or liquid drug formulations that are available whenever modified delivery is recommended. Compensatory Strategies and Precautions to be Taken for Safe Swallow: Sitting Upright (90 deg) Small Bites and Sips Alternate Liquids/Solids Rate of Ingestion Change Supervision While Eating and Drinking for Safe Swallow: None Needed Recommendation for Speech: Discharge Inpatient Speech Therapy Comment: Please re-refer if needed. Frequency/Duration: Date Range for Service Req: Timeline to reassess: Cloth Coverer Clinican/Clinical Fellow: No Supervisory Statement: I have reviewed and agree with the student/clinical fellow's documentation: N/A Speech Language Pathologist: Ofelia Mistry M.A., CCC-X RAY TECHNICIAN
--- NOTE | 2024-09-25 10:42 | P.PNIM_ITS ---
Subjective Subjective Date of Service: 09/25/24 Interval History: left knee pain dysarthria resolved Physical Exam 2 Vital Signs: Vital Signs: Last Vital Signs Temp 97.4 F 09/25/24 07:13 Pulse 84 09/25/24 07:13 Resp 17 09/25/24 07:13 BP 144/62 H 09/25/24 08:59 Pulse Ox 99 09/25/24 07:13 O2 Del Method Room Air 09/25/24 07:13 BMI result Body Mass Index 27.9 Neuro: Other: She is alert and awake with normal spontaneity of speech fluency comprehension and affect. Face is symmetrical. Visual rubio are full. There was no focal arm weakness. She was hesitant to move her left leg because of recent surgery but had no trouble moving right. Plantars were flexor. She was wiggling her toes. Objective Data Active Medications Alprazolam (Alprazolam 0.25 Mg Tablet) 0.25 mg PO BEDTIME [facility] Last Admin: 09/24/24 20:32 Dose: 0.25 mg Documented By: NIXON Ascorbic Acid (Ascorbic Acid 500 Mg Tablet) 500 mg PO BEDTIME [facility] Last Admin: 09/24/24 20:32 Dose: 500 mg Documented By: NIXON Atorvastatin Calcium (Atorvastatin Calcium 20 Mg Tablet) 20 mg PO BEDTIME [facility] Last Admin: 09/24/24 20:32 Dose: 20 mg Documented By: NIXON Baclofen (Baclofen 20 Mg Tablet) 20 mg PO TID [facility] Last Admin: 09/25/24 08:59 Dose: 20 mg Documented By: XOCHITL Calcium Carbonate (Calcium Carbonate 750 Mg Tab.Chew) 750 mg PO Q4H PRN PRN Reason: Heartburn Docusate Sodium (Docusate Sodium 100 Mg Capsule) 100 mg PO BID [facility] Last Admin: 09/25/24 09:03 Dose: Not Given Documented By: XOCHITL Non-Admin Reason: Patient Refused Enoxaparin Sodium (Enoxaparin Sodium 40 Mg/0.4 Ml Syringe) 40 mg SUBCUT Q24H [facility] Last Admin: 09/25/24 09:04 Dose: Not Given Documented By: XOCHITL Non-Admin Reason: Patient Refused Escitalopram Oxalate (Escitalopram Oxalate 10 Mg Tablet) 10 mg PO DAILY [facility] Last Admin: 09/25/24 08:59 Dose: 10 mg Documented By: XOCHITL Folic Acid (Folic Acid 1 Mg Tablet) 1 mg PO DAILY [facility] Hydromorphone HCl (Hydromorphone Hcl 0.5 Mg/0.5 Ml Syringe) 0.5 mg IVPUSH Q4H PRN; Protocol PRN Reason: Pain, Severe (Pain Scale 7-10) Last Admin: 09/25/24 02:12 Dose: 0.5 mg Documented By: CAMILLA Lactated Ringer's (Lr) 1,000 mls @ 75 mls/hr IVCONT .[id number] [facility] Last Admin: 09/25/24 06:29 Dose: 75 mls/hr Documented By: CAMILLA Acetaminophen (Ofirmev) 1,000 mg in 100 mls @ 400 mls/hr IV Q6H [facility] Last Admin: 09/25/24 07:59 Dose: Not Given Documented By: XOCHITL Non-Admin Reason: Unable to give > 3G per MAR. Losartan Potassium (Losartan Potassium 50 Mg Tablet) 100 mg PO DAILY [facility]; Protocol Last Admin: 09/25/24 08:59 Dose: 100 mg Documented By: XOCHITL Magnesium Hydroxide (Milk Of Magnesia 30 Ml Oral.Susp) 30 ml PO DAILY PRN PRN Reason: Constipation Magnesium Hydroxide (Milk Of Magnesia 30 Ml Oral.Susp) 30 ml PO BID PRN PRN Reason: Constipation Last Admin: 09/24/24 20:37 Dose: 30 ml Documented By: NIXON Melatonin (Melatonin 3 Mg Tablet) 6 mg PO BEDTIME PRN PRN Reason: Insomnia Methenamine Hippurate (Methenamine Hippurate 1 Gm Tablet) 1 gm PO BID [facility] Last Admin: 09/25/24 08:59 Dose: 1 gm Documented By: XOCHITL Ondansetron HCl (Ondansetron Hcl 4 Mg/2 Ml Vial) 4 mg IVPUSH Q8H PRN PRN Reason: Nausea and Vomiting Sodium Chloride (0.9 % Sodium Chloride Flush 3 Ml Syringe) 3 ml IVFLUSH QSHIFT [facility] Last Admin: 09/25/24 07:47 Dose: Not Given Documented By: XOCHITL Non-Admin Reason: IV Running Valacyclovir HCl (Valacyclovir Hcl 500 Mg Tablet) 500 mg PO DAILY [facility] Last Admin: 09/25/24 08:59 Dose: 500 mg Documented By: XOCHITL Vitamin D (Cholecalciferol (Vitamin D3) 25 Mcg Tablet) 125 mcg PO DAILY [facility] Last Admin: 09/25/24 08:58 Dose: 125 mcg Documented By: XOCHITL Labs 09/25/24 07:06 09/25/24 07:06 Labs: Laboratory Results - last 24 hr 09/24/24 09/25/24 05:59 07:06 MCV 95.8 MCH 30.5 MCHC 31.9 RDW 13.6 Plt Count 429 H MPV 8.5 L Absolute Nucleated RBC 0.000 Nucleated RBC % (auto) 0.0 Anion Gap 12 Estim Creat Clear Calc 91.5 Estimated GFR > 60 Random Glucose 101 Calcium 8.9 Iron 61 TIBC 236 % Saturation 26 Unsat Iron Binding 175 Ferritin 175 Vitamin B12 1661 H Folate 6.7 Assessment and Plan (1) Dysarthria: Status: Acute Plan 69F PMH hypertension, hyperlipidemia, multiple sclerosis with left lower extremity weakness, MARJAN not on CPAP, recent left TKA on 09/16/2024 presented with dysarthria Dysarthria Acute toxic metabolic encephalopathy due to oxycodone and pain MRI negative for acute stroke, symptoms resolved Neuro appreciated Mild elevated troponin Echo unremarkable, flat, no chest pain CKD 3 No evidence of CKD 3, creatinine normal Anemia Unspecified, iron studies not consistent with iron-deficiency, folic acid low normal will start supplement, outpatient Hematology Hypertension Losartan MS Baclofen DVT prophylaxis Lovenox Full Code reason for continued hospitalization: Dispo planning Quality Stroke Does the patient have a stroke diagnosis?: No VTE Prior VTE?: No VTE Risk Level:: Medical - moderate - high VTE Device Contraindication: N/A - Device Ordered VTE Drug Contraindication: Treatment Not Indicated
--- NOTE | 2024-09-25 10:46 | HO.WOUND ---
Wound Consult: Initial 69 yr old female admitted to [facility] on 09/23/24 - See progress notes and H&P for detailed history. Wound consult placed for left knee. Patient agreeable to assessment. Patient with reported total knee replacement at [facility] on 09/16/24. surgical dressing remains in place, dry intact. patient showered and reported mild lifting at superior portion of dressing, dressing is reinforced with bandages. she reports follow up 09/28/24 with her surgeon, she is pending possible inpatient rehab placement. Etiology: Surgical Measurements: Wound Bed: unable to visualize, dressing intact, dry Drainage / Odor: scant sanguinous Edges: ? Nadiya wound: ? No Induration, Fluctuance or Warmth noted. left leg with mild edema and ecchymosis. Pain: 0 Goals of Treatment: ? maintain surgical dressing until follow up with orthopedic surgeon. manage edema with ice. Recommendations: 1. Turn and Reposition every 2 hours and as needed for patient comfort. Use pillows or wedges to support off loading positions. 2. Off Load all bony prominences with use of pillows and heel boots if needed. Apply Preventative foams where needed. 3. Monitor for incontinence and moisture control, use barrier creams when needed for prevention and treatment. 4. Provide adequate and supplemental nutrition. 5. When applicable maintain blood glucose levels per Providers order. 6. Maintain surgical dressing, recommend continued ice application Re-consult wound care Nurse for wound deterioration or wound changes.
--- NOTE | 2024-09-25 10:49 | PM.DS ---
DS: Providers Provider Date of Service: 09/25/24 Date of admission: 09/23/24 21:39 Date of discharge: 09/25/24 Primary care physician: Indigo Carroll MD Consults: 09/23/24 23:41 Consult to Neurology Routine Consulting Provider: [facility] Reason for consultation: LLE weakness, expressive aphasia, dysarthria Has provider been notified: No 09/25/24 05:23 Consult to Wound Care Routine Reason for consultation: L knee surgical site DS: Diagnosis Discharge Diagnosis (1) Dysarthria: Status: Acute DS: Summary Hospital Course Hospital Course: from initial hpi: 69-year-old female with a past medical history significant for CKD 3, HTN, HLD, MS with left lower extremity weakness, MARJAN (no CPAP), recently s/p left TKA on 09/16/2024 at [facility], who presented to the ED due to confusion, expressive aphasia and dysarthria starting around 08:00 when the patient woke up. The patient's last known well time was 21:00 yesterday. She reports that when she woke up she was unable to move her left leg, she does have issues with hip flexion due to her MS however she was unable to move the lower leg which is usually not an issue for her. She had difficulty with her and home physical therapy which she has been doing okay with. She called her multiple times unable to speak with dysarthria. She is questioning whether she took too much oxycodone, she feels she may have taken too by accident. She reports when she had breakfast this morning she was having a hard time swallowing therefore did not eat much. She did take a nap after her physical therapy from about 10:00 to 15:00. When she woke up her symptoms were persistent. On arrival her NIH scale score was 7. She reports she has not had an MS flare in the past 38 years. Upon discharge from [facility] on 09/17/2024 her hemoglobin was 8.5, hemoglobin now is 7.3. The patient does have significant swelling and bruising behind the left knee, she is concerned for a DVT. The patient works as an RN. hospital course: Patient was admitted for dysarthria. This was likely due to acute toxic metabolic encephalopathy due to oxycodone use and pain from recent total knee replacement. MRI was negative for acute stroke. Symptoms resolved. Was seen by physical therapy recommended acute rehab to which patient will be discharged. For mild elevation and troponin remained flat did not have chest pain and echo was unremarkable. Can follow up outpatient. For CKD 3 remained stable. For unspecified anemia iron studies were not consistent with iron-deficiency anemia B12 was elevated and folic acid was low normal. Will be started on folic acid supplement and should follow up outpatient with Hematology. Hemoglobin remained stable between 7 and 8. For hypertension was continued on losartan. For multiple sclerosis was continued on baclofen. Time Attestation Discharge Coordination Time (in mins): 32 Quality: Safe Use of Opioids Does Pt have an Active Cancer Diagnosis on the Problem List?: No Quality: Stroke Does the patient have a stroke diagnosis?: No Physical Exam Vital Signs: Vital Signs: Last Vital Signs Temp 97.4 F 09/25/24 07:13 Pulse 84 09/25/24 07:13 Resp 17 09/25/24 07:13 BP 144/62 H 09/25/24 08:59 Pulse Ox 99 09/25/24 07:13 O2 Del Method Room Air 09/25/24 07:13 BMI result Body Mass Index 27.9 Neuro: Other: She is alert and awake with normal spontaneity of speech fluency comprehension and affect. Face is symmetrical. Visual rubio are full. There was no focal arm weakness. She was hesitant to move her left leg because of recent surgery but had no trouble moving right. Plantars were flexor. She was wiggling her toes. DS: Data Data Completed and Pending Labs on day of discharge: Laboratory Results - last 24 hr 09/24/24 09/25/24 05:59 07:06 WBC 9.7 RBC 2.59 L Hgb 7.9 L Hct 24.8 L MCV 95.8 MCH 30.5 MCHC 31.9 RDW 13.6 Plt Count 429 H MPV 8.5 L Absolute Nucleated RBC 0.000 Nucleated RBC % (auto) 0.0 Sodium 137 Potassium 3.8 Chloride 105 Carbon Dioxide 24 Anion Gap 12 BUN 10 Creatinine 0.57 Estim Creat Clear Calc 91.5 Estimated GFR > 60 Random Glucose 101 Calcium 8.9 Iron 61 TIBC 236 % Saturation 26 Unsat Iron Binding 175 Ferritin 175 Vitamin B12 1661 H Folate 6.7 Discharge Plan Discharge Anticipated Discharge Date/Time: 09/25/24 10:44 Patient Disposition: Xfer Inpatient Rehab Fac Discharge Diagnosis: toxic encephalopathy Referrals: Indigo Carroll MD [Primary Care Provider, Internal Medicine] - 1 Week Kristal Boyle MD [Physician, Hematology & Oncology] - 1 Week Discharge Medications: New folic acid 1 mg Tablet 1 mg PO DAILY Qty: 0 0RF Continued atorvastatin 20 mg tablet 20 mg PO BEDTIME valacyclovir 500 mg tablet 500 mg PO DAILY tramadol 50 mg tablet 50 - 100 mg PO Q6H PRN (Reason: mild pain) baclofen 20 mg tablet 20 mg PO TID methenamine hippurate 1 gram tablet 1 g PO BID alprazolam 0.25 mg tablet 0.25 mg PO BEDTIME citalopram 20 mg tablet 20 mg PO DAILY losartan 100 mg tablet 100 mg PO DAILY oxycodone 5 mg tablet 5 - 10 mg PO Q4H PRN (Reason: moderate pain) estradiol [Yuvafem] 10 mcg tablet 10 mcg vaginal MOFR acetaminophen 325 mg Tablet 650 mg PO DAILY PRN (Reason: Pain) ascorbic acid (vitamin C) [Vitamin C] 500 mg Tablet 500 mg PO BEDTIME fluticasone propionate 50 mcg/actuation [place],Suspension 1 spray INTRANASAL BEDTIME Rx Instructions: administer into each nostril cholecalciferol (vitamin D3) [Vitamin D3] 125 mcg (5,000 unit) Tablet 125 mcg PO DAILY ocrelizumab 30 mg/mL Solution 300 mg IV [id number] Diet: Advance to usual diet Activity on Discharge: As tolerated Stand Alone Forms: Patient Portal Discharge page Print Language: Citizen Of [place] Care Plan Goals: recovery Health Concerns: ms, pain control, weakness, anemia Plan of Treatment: acute rehab, follow up with hematology, starting folic acid Assessment: see above
[2024-09-25 11:37] VITALS: BP 138/65; PULSE 91; RESP 16; TEMP 36.6; O2SAT 100
--- NOTE | 2024-09-25 11:43 | MHC.CM.PN ---
Patient has been medically cleared for dc to Acute Rehab today. Patient has accepted a bed from [facility] and she will dc there today at 2:30PM, via [facility]. Last IMM addressed yesterday.
== END 2024-09-25 14:55 | DRG 91 ==
LOC: HO.ED 18:51 → HO.EDOVER 21:55 → HO.IMC 09-25 00:25
PROVIDERS: Physician Assistant; Admitting Provider Internal Medicine; Emergency Provider Emergency Medicine Emergency Medical Services; PCP Internal Medicine; Visit Provider Internal Medicine
DX: G92.8 Other toxic encephalopathy (principal); I21.A1 Myocardial infarction type 2; R47.01 Aphasia; G35 Multiple sclerosis; D63.1 Anemia in chronic kidney disease; I12.9 Hypertensive chronic kidney disease with stage 1 through stage 4 chronic kidney disease, or unspecified chronic kidney disease; N18.30 Chronic kidney disease, stage 3 unspecified; G47.33 Obstructive sleep apnea (adult) (pediatric); T40.2X5A Adverse effect of other opioids, initial encounter; Z87.891 Personal history of nicotine dependence; Z79.51 Long term (current) use of inhaled steroids; Z79.899 Other long term (current) drug therapy
CPT/HCPCS: 36415; 70450; 70496; 70498; 70551; 80048; 80061; 80076; 80307; 82607; 82728; 82746; 82947; 83540; 84484; 85014; 85018; 85025; 85027; 85610; 85730; 86850; 86900; 86901; 92526; 92610; 93005; 93306; 93971; 97162; 97166; 97535; 99285; J0131; J1171; J2270; J2405; J7120; Q9957; Q9967

== ENCOUNTER → 2024-09-23 18:22 | Outpatient (BNV) | payer MEDICARE, SELFPAY | PROVIDERS: Admitting Provider Internal Medicine; Emergency Provider Emergency Medicine Emergency Medical Services; PCP Internal Medicine; Visit Provider Internal Medicine Cardiovascular Disease | DX: R94.31 Abnormal electrocardiogram [ECG] [EKG] (principal); I63.9 Cerebral infarction, unspecified | CPT/HCPCS: 93010 ==

== ENCOUNTER → 2024-09-23 18:22 | Outpatient (BNV) | payer MEDICARE, SELFPAY | PROVIDERS: Emergency Provider Emergency Medicine Emergency Medical Services; Visit Provider Radiology Diagnostic Radiology | DX: I63.9 Cerebral infarction, unspecified (principal); R47.01 Aphasia; R41.0 Disorientation, unspecified; R53.1 Weakness; R47.89 Other speech disturbances | CPT/HCPCS: 70450; 70496; 70498; 93971 ==

== ENCOUNTER 2024-09-23 21:39 | Outpatient (BNV) | payer MEDICARE, SELFPAY | END 2024-09-24 18:30 | PROVIDERS: Admitting Provider Internal Medicine; Emergency Provider Emergency Medicine Emergency Medical Services; PCP Internal Medicine; Visit Provider Radiology Diagnostic Radiology | DX: G83.12 Monoplegia of lower limb affecting left dominant side (principal) | CPT/HCPCS: 70551 ==

== ENCOUNTER 2024-09-23 21:39 | Outpatient (BNV) | payer MEDICARE, SELFPAY | END 2024-09-24 07:00 | PROVIDERS: Admitting Provider Internal Medicine; Emergency Provider Emergency Medicine Emergency Medical Services; PCP Internal Medicine; Visit Provider Internal Medicine Cardiovascular Disease | DX: Z13.6 Encounter for screening for cardiovascular disorders (principal) | CPT/HCPCS: 93306 ==

== ENCOUNTER → 2024-09-23 21:39 | Outpatient (BNV) | payer MEDICARE, SELFPAY | PROVIDERS: Admitting Provider Internal Medicine; Emergency Provider Emergency Medicine Emergency Medical Services; Visit Provider Physician Assistant | DX: R47.1 Dysarthria and anarthria (principal) | CPT/HCPCS: 99223; 99233; 99239; 99499 ==

== ENCOUNTER → 2024-09-23 21:39 | Outpatient (BNV) | payer MEDICARE, SELFPAY | PROVIDERS: Admitting Provider Internal Medicine; Emergency Provider Emergency Medicine Emergency Medical Services; Visit Provider Psychiatry & Neurology Neurology | DX: R47.1 Dysarthria and anarthria (principal) | CPT/HCPCS: 99223 ==